=== PATIENT | female | born 1970 | race American Indian/Alaskan Native ===

== ENCOUNTER 2018-11-11 09:42 | Outpatient (CLI) | payer OTHER ==
--- NOTE | 2018-11-11 13:15 | Mammography Report ---
BILATERAL DIGITAL SCREENING MAMMOGRAM with CAD: 11/11/18 09:42:00 CLINICAL: Routine screening. COMPARISON:11/14/13 FINDINGS: Limited mobility of the left arm and subsequent suboptimal positioning of the left breast on MLO view. The breasts are heterogeneously dense, which may obscure small masses. No mass, architectural distortion or suspicious calcifications. IMPRESSION: No mammographic evidence of malignancy. BI-RADS CATEGORY: 1 - - Negative RECOMMENDATION: Routine mammographic screening in one year. COMMENT: Patient follow-up letters are generated by our [employer] application.
== END 2018-11-11 09:43 | disposition home or self-care (01) ==
LOC: MAMMO 09:42
PROVIDERS: ATTEND Obstetrics & Gynecology
DX: Z12.31 Encounter for screening mammogram for malignant neoplasm of breast (principal)
CPT/HCPCS: 77067

== ENCOUNTER 2018-12-09 10:20 | Outpatient (CLI) | payer OTHER ==
[2018-12-09 11:35] LABS: Bilirubin,Urine NEG (Negative); Blood,Urine SM (Negative); Color,Urine Yellow (Yellow); Mucus,Urine FEW /HPF; Protein,Urine <15 mg/dL mg/dL (Negative); Urobilinogen,Urine < 2.0 mg/dL (<2.0)
[2018-12-09 11:39] LABS: Chol/HDL Ratio 5.05 %
[2018-12-12 10:48] LABS: Vitamin D, 25-OH, D2 <4 ng/mL
== END 2018-12-09 10:21 | disposition home or self-care (01) ==
LOC: LAB 10:20
PROVIDERS: ATTEND Internal Medicine
DX: Z13.220 Encounter for screening for lipoid disorders (principal); E78.5 Hyperlipidemia, unspecified; R73.03 Prediabetes; N39.0 Urinary tract infection, site not specified
CPT/HCPCS: 36415; 80061; 81001; 82306; 83036; 87086

== ENCOUNTER 2019-05-01 10:13 | Outpatient (CLI) | payer OTHER ==
[2019-05-04 14:54] LABS: Vitamin D, 25-OH, D2 40 ng/mL
== END 2019-05-01 10:14 | disposition home or self-care (01) ==
LOC: LAB 10:13
PROVIDERS: ATTEND Internal Medicine
DX: E78.5 Hyperlipidemia, unspecified (principal); E55.9 Vitamin D deficiency, unspecified; R73.03 Prediabetes
CPT/HCPCS: 36415; 80061; 82306; 83036

== ENCOUNTER 2020-11-05 17:20 | Inpatient (IN) | payer OTHER ==
[2020-11-05] MEDS ORDERED: ALUM-MAG HYDROXIDE-SIMETHICONE 200-200-20MG/5ML ORAL LIQD 30 ML PO PRN (17:46)
[2020-11-05] MEDS ORDERED: ACETAMINOPHEN 325 MG TAB PO PRN (17:46)
[2020-11-05] MEDS ORDERED: MAGNESIUM HYDROXIDE (MOM) ORAL LIQD UDC PO PRN (17:46)
[2020-11-05] MEDS ORDERED: diphenhydrAMINE 25 MG CAP PO PRN (17:46)
[2020-11-05] MEDS ORDERED: ONDANSETRON 4 MG/2 ML INJ IV PRN (17:46)
[2020-11-05] MEDS ORDERED: DEXTROSE 50% IN WATER (25GM) 50 ML SYRINGE IV PRN ×2 (17:54→20:11)
[2020-11-05] MEDS ORDERED: LACTATED RINGERS 1,000 ML IV SCH (18:00)
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
[2020-11-05 18:41] LABS: Hematocrit 38.2 % (30.3-42.9); Mean Corpuscular HGB Conc 34 % (30-34); Mean Corpuscular Volume 89 fl (79-97); Platelet Count 324 K/mm3 (140-440); Red Cell Distribution Width 14.8 % (13.2-15.2)
[2020-11-05] MEDS ORDERED: MAGNESIUM SULFATE 40GM/1000ML 40 GM/1,000 ML BAG IV SCH ×2 (19:00→20:00)
[2020-11-05 19:04] LABS: Alanine Aminotransferase 20 units/L (7-56); Uric Acid 4.9 mg/dL (3.5-7.6)
[2020-11-05] MEDS ORDERED: hydrALAZINE 20 MG/1 ML INJ IV ONE (19:23)
[2020-11-05] MEDS ORDERED: MAGNESIUM SULFATE 4 GM/100 ML BAG IV ONE ×5 (19:24→19:45)
[2020-11-05] MEDS ORDERED: MAGNESIUM SULFATE 40GM/1000ML 40 GM/1,000 ML BAG IV ONE (19:42)
[2020-11-05] MEDS ORDERED: LACTATED RINGERS 1,000 ML ONE (19:43)
--- NOTE | 2020-11-05 21:15 | Event Note ---
<JESUS MEZA - Last Filed: 11/05/20 21:20> Date: 11/05/20 (Pt with shortness of breath. ) Pt with elevated blood pressures with the highest being 200's/100's. Consult[address] with Dr. Grace and the decision was made to start magnesium infusion. After the bolus of magnesium was completed patient begin to have shortness of breath. Stating that she could not breath. She was sitting up in the bed with labored breathing and appeared to be in distress. Lung sounds clear and O2 saturations were 97-98% on room air. Magnesium was stopped, stat mag level ordered along with a chest x-ray. <JAVIER GRACE - Last Filed: 11/05/20 21:36> CXR report still pending
--- NOTE | 2020-11-05 21:56 | XRay Report ---
CHEST 1 VIEW 11/05/2020 9:12 PM INDICATION / CLINICAL INFORMATION: Shortness of breath. COMPARISON: None available. FINDINGS: SUPPORT DEVICES: None. HEART / MEDIASTINUM: Enlarged cardiac silhouette. LUNGS / PLEURA: Elevation of the left hemidiaphragm with left lung base atelectasis. No pneumothorax. ADDITIONAL FINDINGS: Subluxation of the left glenohumeral joint may be secondary to positioning, if o f clinical concern dedicated radiographs the shoulder are recommended. Gas-filled and distended bowel loops over the upper abdomen. IMPRESSION: 1. Elevation of the left hemidiaphragm with left lung base atelectasis. 2. Gas-filled and distended bowel loops over the upper abdomen. Signer Name: Ramone Guadalupe MD Signed: 11/05/2020 9:52 PM Workstation Name: [id number]
[2020-11-06] MEDS ORDERED: LACTATED RINGERS 1,000 ML ONE ×3 (05:27→22:04)
--- NOTE | 2020-11-06 08:10 | Progress Note ---
<DIEGO CRONIN - Last Filed: 11/06/20 08:25> Assessment and Plan Pt up, sitting in chair while nurse changes linen. She has not complaints. denies MEJIA, visual changes or epigastric pain, b/p's trending 120-130/70-80's on Labetalol 200mg BID - Patient Problems (1) Advanced maternal age (AMA), 40 years or greater Current Visit: Yes Status: Acute (2) Elevated blood pressure complicating in third trimester, antepartum Onset Date: ~11/05/20 Current Visit: Yes Status: Acute Plan to address problem: AMFM consult 24hr urine in progress Continue to monitor for s/s pre-e (3) Gestational diabetes mellitus (GDM) Current Visit: Yes Status: Acute Qualifiers: Gestational diabetes mellitus control: diet-controlled Trimester: third trimester Qualified Code(s): O24.410 - Gestational diabetes mellitus in , diet controlled Plan to address problem: consistent carb diet SS insulin if indicated (4) with 35 completed weeks gestation Current Visit: Yes Status: Acute Subjective - Subjective Date of service: 11/06/20 Principal diagnosis: IUP @ 35+5 weeks; elevated blood pressures, 24hr urine in progress Patient reports: movement normal, no new complaints, no loss of fluid, no vaginal bleeding, no contractions, no other Objective - Vital Signs Vital Signs: Vital Signs - 12hr 11/05/20 11/05/20 11/05/20 20:07 20:08 20:13 Temperature Pulse Rate 78 85 87 Blood Pressure 134/86 O2 Sat by Pulse 98 99 Oximetry 11/05/20 11/05/20 11/05/20 20:18 20:22 20:23 Temperature Pulse Rate 83 79 85 Blood Pressure 123/79 O2 Sat by Pulse 99 97 Oximetry 11/05/20 11/05/20 11/05/20 20:27 20:28 20:31 Temperature Pulse Rate 85 87 79 Blood Pressure 121/72 O2 Sat by Pulse 96 94 Oximetry 11/05/20 11/05/20 11/05/20 20:33 20:35 20:37 Temperature Pulse Rate 80 82 83 Blood Pressure 165/90 158/79 O2 Sat by Pulse 93 94 Oximetry 11/05/20 11/05/20 11/05/20 20:38 20:43 20:48 Temperature Pulse Rate 86 75 74 Blood Pressure 155/92 115/61 111/65 O2 Sat by Pulse 94 97 99 Oximetry 11/05/20 11/05/20 11/05/20 20:52 20:53 20:58 Temperature Pulse Rate 67 70 70 Blood Pressure 114/74 141/82 O2 Sat by Pulse 98 99 Oximetry 11/05/20 11/05/20 11/05/20 21:03 21:08 21:13 Temperature Pulse Rate 72 72 75 Blood Pressure 125/78 124/84 140/83 O2 Sat by Pulse 99 98 99 Oximetry 11/05/20 11/05/20 11/05/20 21:17 21:18 21:22 Temperature Pulse Rate 76 77 76 Blood Pressure 141/84 130/83 O2 Sat by Pulse 99 Oximetry 11/05/20 11/05/20 11/05/20 21:23 21:27 21:28 Temperature Pulse Rate 78 77 79 Blood Pressure 131/87 O2 Sat by Pulse 98 99 Oximetry 11/05/20 11/05/20 11/05/20 21:32 21:33 21:38 Temperature Pulse Rate 81 79 83 Blood Pressure 132/86 137/89 O2 Sat by Pulse 99 99 Oximetry 11/05/20 11/05/20 11/05/20 21:43 21:47 21:48 Temperature Pulse Rate 83 81 85 Blood Pressure 122/78 121/78 O2 Sat by Pulse 99 99 Oximetry 11/05/20 11/05/20 11/05/20 21:52 21:53 21:57 Temperature Pulse Rate 78 81 82 Blood Pressure 122/79 115/76 O2 Sat by Pulse 99 Oximetry 11/05/20 11/05/20 11/05/20 21:58 22:02 22:03 Temperature Pulse Rate 81 80 81 Blood Pressure 128/79 O2 Sat by Pulse 99 98 Oximetry 11/05/20 11/05/20 11/05/20 22:07 22:08 22:13 Temperature Pulse Rate 80 83 80 Blood Pressure 119/74 127/75 O2 Sat by Pulse 98 99 Oximetry 11/05/20 11/05/20 11/05/20 22:17 22:18 22:23 Temperature Pulse Rate 82 80 84 Blood Pressure 128/79 123/78 O2 Sat by Pulse 99 99 Oximetry 11/05/20 11/05/20 11/05/20 22:28 22:33 22:38 Temperature Pulse Rate 80 80 80 Blood Pressure 120/73 124/81 138/65 O2 Sat by Pulse 99 99 99 Oximetry 11/05/20 11/05/20 11/05/20 22:43 22:48 22:53 Temperature Pulse Rate 79 81 82 Blood Pressure 120/78 O2 Sat by Pulse 99 98 99 Oximetry 11/05/20 11/05/20 11/05/20 22:57 22:58 23:02 Temperature Pulse Rate 80 82 76 Blood Pressure 121/78 125/81 O2 Sat by Pulse 99 Oximetry 11/05/20 11/05/20 11/05/20 23:03 23:08 23:13 Temperature Pulse Rate 83 89 84 Blood Pressure 132/86 131/88 O2 Sat by Pulse 98 99 100 Oximetry 11/05/20 11/05/20 11/05/20 23:18 23:23 23:28 Temperature Pulse Rate 87 78 80 Blood Pressure 126/84 133/85 128/88 O2 Sat by Pulse 99 98 100 Oximetry 11/05/20 11/05/20 11/05/20 23:32 23:47 23:52 Temperature Pulse Rate 81 79 82 Blood Pressure 133/92 O2 Sat by Pulse 100 98 Oximetry 11/05/20 11/05/20 11/05/20 23:53 23:57 23:59 Temperature Pulse Rate 76 78 76 Blood Pressure 122/86 139/82 O2 Sat by Pulse 99 Oximetry 11/06/20 11/06/20 11/06/20 00:00 00:02 00:03 Temperature 97.7 F Pulse Rate 76 74 Blood Pressure 133/87 O2 Sat by Pulse 98 Oximetry 11/06/20 11/06/20 11/06/20 00:07 00:08 00:12 Temperature Pulse Rate 80 81 83 Blood Pressure 126/83 O2 Sat by Pulse 97 99 Oximetry 11/06/20 11/06/20 11/06/20 00:17 00:18 00:22 Temperature Pulse Rate 81 75 78 Blood Pressure 141/83 O2 Sat by Pulse 100 99 Oximetry 11/06/20 11/06/20 11/06/20 00:27 00:32 00:37 Temperature Pulse Rate 85 82 82 Blood Pressure O2 Sat by Pulse 100 100 100 Oximetry 11/06/20 11/06/20 11/06/20 00:42 00:47 00:48 Temperature Pulse Rate 87 81 86 Blood Pressure 126/80 O2 Sat by Pulse 100 98 Oximetry 11/06/20 11/06/20 11/06/20 00:52 00:57 01:02 Temperature Pulse Rate 80 81 79 Blood Pressure O2 Sat by Pulse 99 100 99 Oximetry 11/06/20 11/06/20 11/06/20 01:07 01:12 01:17 Temperature Pulse Rate 80 93 H 84 Blood Pressure O2 Sat by Pulse 100 100 99 Oximetry 11/06/20 11/06/20 11/06/20 01:18 01:22 01:27 Temperature Pulse Rate 84 87 86 Blood Pressure 136/82 O2 Sat by Pulse 99 99 Oximetry 11/06/20 11/06/20 11/06/20 01:32 01:37 01:42 Temperature Pulse Rate 79 80 78 Blood Pressure O2 Sat by Pulse 100 99 99 Oximetry 11/06/20 11/06/20 11/06/20 01:47 02:01 02:06 Temperature Pulse Rate 79 82 79 Blood Pressure O2 Sat by Pulse 99 100 100 Oximetry 11/06/20 11/06/20 11/06/20 02:11 02:16 02:18 Temperature Pulse Rate 76 75 75 Blood Pressure 106/67 O2 Sat by Pulse 99 99 Oximetry 11/06/20 11/06/20 11/06/20 02:21 02:26 02:31 Temperature Pulse Rate 76 76 77 Blood Pressure O2 Sat by Pulse 99 100 99 Oximetry 11/06/20 11/06/20 11/06/20 02:36 02:41 02:46 Temperature Pulse Rate 75 71 74 Blood Pressure O2 Sat by Pulse 98 100 99 Oximetry 11/06/20 11/06/20 11/06/20 02:51 02:56 03:01 Temperature Pulse Rate 74 77 75 Blood Pressure O2 Sat by Pulse 98 99 99 Oximetry 11/06/20 11/06/20 11/06/20 03:06 03:11 03:16 Temperature Pulse Rate 75 79 79 Blood Pressure O2 Sat by Pulse 99 97 98 Oximetry 11/06/20 11/06/20 11/06/20 03:19 03:21 03:26 Temperature Pulse Rate 79 76 Blood Pressure O2 Sat by Pulse 64 L 97 99 Oximetry 11/06/20 11/06/20 11/06/20 03:29 03:31 03:36 Temperature Pulse Rate 77 74 78 Blood Pressure 126/65 O2 Sat by Pulse 99 98 Oximetry 11/06/20 11/06/20 11/06/20 03:41 03:46 03:48 Temperature Pulse Rate 76 78 77 Blood Pressure 104/77 O2 Sat by Pulse 99 100 Oximetry 11/06/20 11/06/20 11/06/20 03:51 03:56 04:01 Temperature Pulse Rate 85 81 82 Blood Pressure O2 Sat by Pulse 98 100 99 Oximetry 11/06/20 11/06/20 11/06/20 04:06 04:11 04:16 Temperature Pulse Rate 78 75 79 Blood Pressure O2 Sat by Pulse 100 100 99 Oximetry 11/06/20 11/06/20 11/06/20 04:18 04:21 04:26 Temperature Pulse Rate 84 83 79 Blood Pressure 127/91 O2 Sat by Pulse 98 99 Oximetry 11/06/20 11/06/20 11/06/20 04:31 04:46 04:49 Temperature Pulse Rate 79 85 74 Blood Pressure 141/75 O2 Sat by Pulse 100 100 Oximetry 11/06/20 11/06/20 11/06/20 04:51 04:56 05:01 Temperature Pulse Rate 79 77 76 Blood Pressure O2 Sat by Pulse 100 99 99 Oximetry 11/06/20 11/06/20 11/06/20 05:06 05:11 05:16 Temperature Pulse Rate 79 83 78 Blood Pressure O2 Sat by Pulse 99 99 99 Oximetry 11/06/20 11/06/20 11/06/20 05:18 05:21 05:26 Temperature Pulse Rate 82 75 74 Blood Pressure 128/82 O2 Sat by Pulse 99 99 Oximetry 11/06/20 11/06/20 11/06/20 05:31 05:36 05:41 Temperature Pulse Rate 74 84 72 Blood Pressure O2 Sat by Pulse 99 97 99 Oximetry 11/06/20 11/06/20 11/06/20 05:46 05:49 05:51 Temperature Pulse Rate 74 78 74 Blood Pressure 125/84 O2 Sat by Pulse 99 98 Oximetry 11/06/20 11/06/20 11/06/20 05:56 06:01 06:06 Temperature Pulse Rate 71 76 75 Blood Pressure O2 Sat by Pulse 99 97 98 Oximetry 11/06/20 11/06/20 11/06/20 06:11 06:16 06:18 Temperature Pulse Rate 80 79 71 Blood Pressure 142/88 O2 Sat by Pulse 97 98 Oximetry 11/06/20 11/06/20 11/06/20 06:21 06:25 06:26 Temperature Pulse Rate 73 79 71 Blood Pressure O2 Sat by Pulse 99 93 95 Oximetry 11/06/20 11/06/20 11/06/20 06:31 06:36 06:41 Temperature Pulse Rate 81 76 74 Blood Pressure O2 Sat by Pulse 99 99 98 Oximetry 11/06/20 11/06/20 11/06/20 06:46 06:48 06:51 Temperature Pulse Rate 87 77 75 Blood Pressure 138/83 O2 Sat by Pulse 98 99 Oximetry 11/06/20 11/06/20 11/06/20 06:56 07:01 07:06 Temperature Pulse Rate 75 74 76 Blood Pressure O2 Sat by Pulse 99 99 100 Oximetry 11/06/20 11/06/20 11/06/20 07:11 07:16 07:18 Temperature Pulse Rate 81 71 78 Blood Pressure 131/76 O2 Sat by Pulse 100 99 Oximetry 11/06/20 11/06/20 11/06/20 07:21 07:26 07:31 Temperature Pulse Rate 82 82 79 Blood Pressure O2 Sat by Pulse 99 100 100 Oximetry 11/06/20 11/06/20 11/06/20 07:36 07:41 07:46 Temperature Pulse Rate 82 74 73 Blood Pressure O2 Sat by Pulse 98 99 100 Oximetry 11/06/20 11/06/20 11/06/20 07:48 07:51 07:56 Temperature Pulse Rate 72 72 70 Blood Pressure 135/80 O2 Sat by Pulse 99 97 Oximetry 11/06/20 08:01 Temperature Pulse Rate 81 Blood Pressure O2 Sat by Pulse 99 Oximetry - Exam Breasts: normal Cardiovascular: Regular rate Lungs: Normal air movement Abdomen: Present: normal appearance, soft Uterus: Present: normal, fundal height above umbilicus FHR: category 1 Uterine Contraction Monitor Mode: External Uterine Contraction Pattern: Absent Uterine Tone Measurement Phase: Resting Extremities: normal Deep Tendon Reflex Grade: Normal +2 - Labs Labs: Abnormal Labs 11/05/20 11/05/20 18:20 22:49 Creatinine 0.4 L Magnesium 2.70 H AST 41 H Lactate Dehydrogenase 482 H Laboratory Results - last 24 hr 11/05/20 11/05/20 11/05/20 18:20 18:20 18:20 WBC 8.1 RBC 4.30 Hgb 13.0 Hct 38.2 MCV 89 MCH 30 MCHC 34 RDW 14.8 Plt Count 324 Creatinine 0.4 L Estimated GFR > 60 POC Glucose Uric Acid 4.9 Magnesium AST 41 H ALT 20 Lactate Dehydrogenase 482 H Syphilis IgG Antibody Blood Type A POSITIVE Antibody Screen Negative 11/05/20 11/05/20 11/05/20 18:20 18:31 22:49 WBC RBC Hgb Hct MCV MCH MCHC RDW Plt Count Creatinine Estimated GFR POC Glucose 96 Uric Acid Magnesium 2.70 H AST ALT Lactate Dehydrogenase Syphilis IgG Antibody Nonreactive Blood Type Antibody Screen <JAVIER BONNER - Last Filed: 11/06/20 10:52> Assessment and Plan Patient resting in chair, no complaints. Diagnosis and plan of care explained. Questions encouraged and answered. She voiced uderstanding and agrees plan of care - Patient Problems (1) Advanced maternal age (AMA), 40 years or greater Current Visit: Yes Status: Acute (2) Elevated blood pressure complicating in third trimester, antepartum Onset Date: ~11/05/20 Current Visit: Yes Status: Acute Objective - Vital Signs Vital Signs: Vital Signs - 12hr 11/05/20 11/05/20 11/05/20 22:53 22:57 22:58 Temperature Pulse Rate 82 80 82 Respiratory Rate Blood Pressure 120/78 121/78 O2 Sat by Pulse 99 99 Oximetry 11/05/20 11/05/20 11/05/20 23:02 23:03 23:08 Temperature Pulse Rate 76 83 89 Respiratory Rate Blood Pressure 125/81 132/86 O2 Sat by Pulse 98 99 Oximetry 11/05/20 11/05/20 11/05/20 23:13 23:18 23:23 Temperature Pulse Rate 84 87 78 Respiratory Rate Blood Pressure 131/88 126/84 133/85 O2 Sat by Pulse 100 99 98 Oximetry 11/05/20 11/05/20 11/05/20 23:28 23:32 23:47 Temperature Pulse Rate 80 81 79 Respiratory Rate Blood Pressure 128/88 133/92 O2 Sat by Pulse 100 100 Oximetry 11/05/20 11/05/20 11/05/20 23:52 23:53 23:57 Temperature Pulse Rate 82 76 78 Respiratory Rate Blood Pressure 122/86 O2 Sat by Pulse 98 99 Oximetry 11/05/20 11/06/20 11/06/20 23:59 00:00 00:02 Temperature 97.7 F Pulse Rate 76 76 Respiratory Rate Blood Pressure 139/82 O2 Sat by Pulse 98 Oximetry 11/06/20 11/06/20 11/06/20 00:03 00:07 00:08 Temperature Pulse Rate 74 80 81 Respiratory Rate Blood Pressure 133/87 126/83 O2 Sat by Pulse 97 Oximetry 11/06/20 11/06/20 11/06/20 00:12 00:17 00:18 Temperature Pulse Rate 83 81 75 Respiratory Rate Blood Pressure 141/83 O2 Sat by Pulse 99 100 Oximetry 11/06/20 11/06/20 11/06/20 00:22 00:27 00:32 Temperature Pulse Rate 78 85 82 Respiratory Rate Blood Pressure O2 Sat by Pulse 99 100 100 Oximetry 11/06/20 11/06/20 11/06/20 00:37 00:42 00:47 Temperature Pulse Rate 82 87 81 Respiratory Rate Blood Pressure O2 Sat by Pulse 100 100 98 Oximetry 11/06/20 11/06/20 11/06/20 00:48 00:52 00:57 Temperature Pulse Rate 86 80 81 Respiratory Rate Blood Pressure 126/80 O2 Sat by Pulse 99 100 Oximetry 11/06/20 11/06/20 11/06/20 01:02 01:07 01:12 Temperature Pulse Rate 79 80 93 H Respiratory Rate Blood Pressure O2 Sat by Pulse 99 100 100 Oximetry 11/06/20 11/06/20 11/06/20 01:17 01:18 01:22 Temperature Pulse Rate 84 84 87 Respiratory Rate Blood Pressure 136/82 O2 Sat by Pulse 99 99 Oximetry 11/06/20 11/06/20 11/06/20 01:27 01:32 01:37 Temperature Pulse Rate 86 79 80 Respiratory Rate Blood Pressure O2 Sat by Pulse 99 100 99 Oximetry 11/06/20 11/06/20 11/06/20 01:42 01:47 02:01 Temperature Pulse Rate 78 79 82 Respiratory Rate Blood Pressure O2 Sat by Pulse 99 99 100 Oximetry 11/06/20 11/06/20 11/06/20 02:06 02:11 02:16 Temperature Pulse Rate 79 76 75 Respiratory Rate Blood Pressure O2 Sat by Pulse 100 99 99 Oximetry 11/06/20 11/06/20 11/06/20 02:18 02:21 02:26 Temperature Pulse Rate 75 76 76 Respiratory Rate Blood Pressure 106/67 O2 Sat by Pulse 99 100 Oximetry 11/06/20 11/06/20 11/06/20 02:31 02:36 02:41 Temperature Pulse Rate 77 75 71 Respiratory Rate Blood Pressure O2 Sat by Pulse 99 98 100 Oximetry 11/06/20 11/06/20 11/06/20 02:46 02:51 02:56 Temperature Pulse Rate 74 74 77 Respiratory Rate Blood Pressure O2 Sat by Pulse 99 98 99 Oximetry 11/06/20 11/06/20 11/06/20 03:01 03:06 03:11 Temperature Pulse Rate 75 75 79 Respiratory Rate Blood Pressure O2 Sat by Pulse 99 99 97 Oximetry 11/06/20 11/06/20 11/06/20 03:16 03:19 03:21 Temperature Pulse Rate 79 79 Respiratory Rate Blood Pressure O2 Sat by Pulse 98 64 L 97 Oximetry 11/06/20 11/06/20 11/06/20 03:26 03:29 03:31 Temperature Pulse Rate 76 77 74 Respiratory Rate Blood Pressure 126/65 O2 Sat by Pulse 99 99 Oximetry 11/06/20 11/06/20 11/06/20 03:36 03:41 03:46 Temperature Pulse Rate 78 76 78 Respiratory Rate Blood Pressure O2 Sat by Pulse 98 99 100 Oximetry 11/06/20 11/06/20 11/06/20 03:48 03:51 03:56 Temperature Pulse Rate 77 85 81 Respiratory Rate Blood Pressure 104/77 O2 Sat by Pulse 98 100 Oximetry 11/06/20 11/06/20 11/06/20 04:01 04:06 04:11 Temperature Pulse Rate 82 78 75 Respiratory Rate Blood Pressure O2 Sat by Pulse 99 100 100 Oximetry 11/06/20 11/06/20 11/06/20 04:16 04:18 04:21 Temperature Pulse Rate 79 84 83 Respiratory Rate Blood Pressure 127/91 O2 Sat by Pulse 99 98 Oximetry 11/06/20 11/06/20 11/06/20 04:26 04:31 04:46 Temperature Pulse Rate 79 79 85 Respiratory Rate Blood Pressure O2 Sat by Pulse 99 100 100 Oximetry 11/06/20 11/06/20 11/06/20 04:49 04:51 04:56 Temperature Pulse Rate 74 79 77 Respiratory Rate Blood Pressure 141/75 O2 Sat by Pulse 100 99 Oximetry 11/06/20 11/06/20 11/06/20 05:01 05:06 05:11 Temperature Pulse Rate 76 79 83 Respiratory Rate Blood Pressure O2 Sat by Pulse 99 99 99 Oximetry 11/06/20 11/06/20 11/06/20 05:16 05:18 05:21 Temperature Pulse Rate 78 82 75 Respiratory Rate Blood Pressure 128/82 O2 Sat by Pulse 99 99 Oximetry 11/06/20 11/06/20 11/06/20 05:26 05:31 05:36 Temperature Pulse Rate 74 74 84 Respiratory Rate Blood Pressure O2 Sat by Pulse 99 99 97 Oximetry 11/06/20 11/06/20 11/06/20 05:41 05:46 05:49 Temperature Pulse Rate 72 74 78 Respiratory Rate Blood Pressure 125/84 O2 Sat by Pulse 99 99 Oximetry 11/06/20 11/06/20 11/06/20 05:51 05:56 06:01 Temperature Pulse Rate 74 71 76 Respiratory Rate Blood Pressure O2 Sat by Pulse 98 99 97 Oximetry 11/06/20 11/06/20 11/06/20 06:06 06:11 06:16 Temperature Pulse Rate 75 80 79 Respiratory Rate Blood Pressure O2 Sat by Pulse 98 97 98 Oximetry 11/06/20 11/06/20 11/06/20 06:18 06:21 06:25 Temperature Pulse Rate 71 73 79 Respiratory Rate Blood Pressure 142/88 O2 Sat by Pulse 99 93 Oximetry 11/06/20 11/06/20 11/06/20 06:26 06:31 06:36 Temperature Pulse Rate 71 81 76 Respiratory Rate Blood Pressure O2 Sat by Pulse 95 99 99 Oximetry 11/06/20 11/06/20 11/06/20 06:41 06:46 06:48 Temperature Pulse Rate 74 87 77 Respiratory Rate Blood Pressure 138/83 O2 Sat by Pulse 98 98 Oximetry 11/06/20 11/06/20 11/06/20 06:51 06:56 07:01 Temperature Pulse Rate 75 75 74 Respiratory Rate Blood Pressure O2 Sat by Pulse 99 99 99 Oximetry 11/06/20 11/06/20 11/06/20 07:06 07:11 07:16 Temperature Pulse Rate 76 81 71 Respiratory Rate Blood Pressure O2 Sat by Pulse 100 100 99 Oximetry 11/06/20 11/06/20 11/06/20 07:18 07:21 07:26 Temperature Pulse Rate 78 82 82 Respiratory Rate Blood Pressure 131/76 O2 Sat by Pulse 99 100 Oximetry 11/06/20 11/06/20 11/06/20 07:31 07:36 07:41 Temperature Pulse Rate 79 82 74 Respiratory Rate Blood Pressure O2 Sat by Pulse 100 98 99 Oximetry 11/06/20 11/06/20 11/06/20 07:46 07:48 07:51 Temperature Pulse Rate 73 72 72 Respiratory Rate Blood Pressure 135/80 O2 Sat by Pulse 100 99 Oximetry 11/06/20 11/06/20 11/06/20 07:56 08:00 08:01 Temperature 98.2 F Pulse Rate 70 81 Respiratory 26 H Rate Blood Pressure O2 Sat by Pulse 97 99 Oximetry 11/06/20 11/06/20 11/06/20 08:06 08:11 08:13 Temperature Pulse Rate 80 69 80 Respiratory Rate Blood Pressure 126/85 O2 Sat by Pulse 99 100 Oximetry 11/06/20 11/06/20 11/06/20 08:16 08:18 08:21 Temperature Pulse Rate 71 82 82 Respiratory Rate Blood Pressure 135/84 O2 Sat by Pulse 99 100 Oximetry 11/06/20 11/06/20 11/06/20 08:26 08:31 08:35 Temperature Pulse Rate 77 93 H 85 Respiratory Rate Blood Pressure O2 Sat by Pulse 100 99 93 Oximetry 11/06/20 11/06/20 11/06/20 08:36 08:41 08:46 Temperature Pulse Rate 82 88 82 Respiratory Rate Blood Pressure O2 Sat by Pulse 99 100 99 Oximetry 11/06/20 11/06/20 11/06/20 08:48 08:51 08:56 Temperature Pulse Rate 78 87 84 Respiratory Rate Blood Pressure 124/76 O2 Sat by Pulse 99 99 Oximetry 11/06/20 11/06/20 11/06/20 09:01 09:06 09:11 Temperature Pulse Rate 88 88 84 Respiratory Rate Blood Pressure O2 Sat by Pulse 99 99 98 Oximetry 11/06/20 11/06/20 11/06/20 09:16 09:19 09:21 Temperature Pulse Rate 82 85 82 Respiratory Rate Blood Pressure 128/72 O2 Sat by Pulse 99 99 Oximetry 11/06/20 11/06/20 11/06/20 09:26 09:31 09:34 Temperature Pulse Rate 81 84 77 Respiratory Rate Blood Pressure 127/81 O2 Sat by Pulse 100 100 Oximetry 11/06/20 11/06/20 11/06/20 09:36 09:41 09:46 Temperature Pulse Rate 87 82 84 Respiratory Rate Blood Pressure O2 Sat by Pulse 98 99 99 Oximetry 11/06/20 11/06/20 11/06/20 09:48 09:51 09:56 Temperature Pulse Rate 78 78 80 Respiratory Rate Blood Pressure 127/78 O2 Sat by Pulse 99 99 Oximetry 11/06/20 11/06/20 11/06/20 10:01 10:06 10:11 Temperature Pulse Rate 78 77 83 Respiratory Rate Blood Pressure O2 Sat by Pulse 98 99 99 Oximetry 11/06/20 11/06/20 11/06/20 10:16 10:18 10:21 Temperature Pulse Rate 77 82 82 Respiratory Rate Blood Pressure 138/76 O2 Sat by Pulse 99 98 Oximetry 11/06/20 11/06/20 11/06/20 10:26 10:31 10:36 Temperature Pulse Rate 78 86 87 Respiratory Rate Blood Pressure O2 Sat by Pulse 98 99 100 Oximetry 11/06/20 11/06/20 11/06/20 10:41 10:46 10:48 Temperature Pulse Rate 86 89 84 Respiratory Rate Blood Pressure 126/84 O2 Sat by Pulse 100 99 Oximetry - Labs Labs: Abnormal Labs 11/05/20 11/05/20 18:20 22:49 Creatinine 0.4 L Magnesium 2.70 H AST 41 H Lactate Dehydrogenase 482 H Laboratory Results - last 24 hr 11/05/20 11/05/20 11/05/20 18:20 18:20 18:20 WBC 8.1 RBC 4.30 Hgb 13.0 Hct 38.2 MCV 89 MCH 30 MCHC 34 RDW 14.8 Plt Count 324 Creatinine 0.4 L Estimated GFR > 60 POC Glucose Uric Acid 4.9 Magnesium AST 41 H ALT 20 Lactate Dehydrogenase 482 H Syphilis IgG Antibody Blood Type A POSITIVE Antibody Screen Negative 11/05/20 11/05/20 11/05/20 18:20 18:31 22:49 WBC RBC Hgb Hct MCV MCH MCHC RDW Plt Count Creatinine Estimated GFR POC Glucose 96 Uric Acid Magnesium 2.70 H AST ALT Lactate Dehydrogenase Syphilis IgG Antibody Nonreactive Blood Type Antibody Screen
[2020-11-06] MEDS: PRENATAL VIT27-FE FUMARATE-FOLIC ACID VIT TAB PO SCH (09:33)
[2020-11-06 11:34] LABS: Uric Acid 5.1 mg/dL (3.5-7.6)
[2020-11-06] MEDS: INSULIN REGULAR, HUMAN 100 UNITS/1 ML SUB-Q SCH (11:44)
[2020-11-07] MEDS ORDERED: LACTATED RINGERS 1,000 ML ONE (06:40)
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
--- NOTE | 2020-11-07 08:38 | Progress Note ---
Assessment and Plan - Patient Problems (1) Elevated blood pressure complicating in third trimester, antepartum Onset Date: ~11/05/20 Current Visit: Yes Status: Acute Plan to address problem: Labetalol per order continue monitoring for SSx of worsening Preeclampsia Plan to revisit POC once 24hr urine results received (2) Gestational diabetes mellitus (GDM) Current Visit: Yes Status: Acute Qualifiers: Gestational diabetes mellitus control: diet-controlled Trimester: third trimester Qualified Code(s): O24.410 - Gestational diabetes mellitus in , diet controlled (3) with 35 completed weeks gestation Current Visit: Yes Status: Acute Subjective - Subjective Date of service: 11/07/20 Principal diagnosis: IUP @ 35+6 weeks; elevated blood pressures, 24hr urine in progress Interval history: Pt sitting up in bed eating breakfast without complaint. Denies MEJIA, vision changes, chest pain, and RUQ pain. Reports desire for a shower and discharge home today. Patient reports: movement normal, no new complaints, no loss of fluid, no vaginal bleeding, no contractions, no other Objective - Vital Signs Vital Signs: Vital Signs - 12hr 11/06/20 11/06/20 11/06/20 20:39 20:44 20:49 Pulse Rate 82 83 80 Blood Pressure 126/76 O2 Sat by Pulse 100 100 Oximetry 11/06/20 11/06/20 11/06/20 20:50 20:55 21:00 Pulse Rate 82 83 86 Blood Pressure O2 Sat by Pulse 100 99 100 Oximetry 11/06/20 11/06/20 11/06/20 21:05 21:10 21:15 Pulse Rate 84 78 78 Blood Pressure O2 Sat by Pulse 100 100 100 Oximetry 11/06/20 11/06/20 11/06/20 21:18 21:20 21:25 Pulse Rate 81 82 81 Blood Pressure 128/80 O2 Sat by Pulse 100 100 Oximetry 11/06/20 11/06/20 11/06/20 21:30 21:35 21:40 Pulse Rate 78 76 79 Blood Pressure O2 Sat by Pulse 100 100 98 Oximetry 11/06/20 11/06/20 11/06/20 21:45 21:48 21:50 Pulse Rate 83 81 83 Blood Pressure 131/81 O2 Sat by Pulse 99 100 Oximetry 11/06/20 11/06/20 11/06/20 21:55 22:00 22:05 Pulse Rate 79 87 84 Blood Pressure O2 Sat by Pulse 100 100 100 Oximetry 11/06/20 11/06/20 11/06/20 22:10 22:13 22:14 Pulse Rate 78 77 81 Blood Pressure 139/76 139/76 O2 Sat by Pulse 100 Oximetry 11/06/20 11/06/20 11/06/20 22:15 22:18 22:20 Pulse Rate 78 74 76 Blood Pressure 138/85 O2 Sat by Pulse 100 100 Oximetry 11/06/20 11/06/20 11/06/20 22:41 22:46 22:49 Pulse Rate 75 80 75 Blood Pressure 132/80 O2 Sat by Pulse 100 100 Oximetry 11/06/20 11/06/20 11/06/20 22:51 22:56 23:01 Pulse Rate 78 77 78 Blood Pressure O2 Sat by Pulse 100 100 100 Oximetry 11/06/20 11/06/20 11/06/20 23:06 23:11 23:16 Pulse Rate 76 83 86 Blood Pressure O2 Sat by Pulse 100 99 100 Oximetry 11/06/20 11/06/20 11/06/20 23:20 23:21 23:26 Pulse Rate 82 82 83 Blood Pressure 157/72 O2 Sat by Pulse 100 100 Oximetry 11/06/20 11/06/20 11/06/20 23:31 23:41 23:46 Pulse Rate 84 86 80 Blood Pressure O2 Sat by Pulse 99 98 99 Oximetry 11/06/20 11/06/20 11/06/20 23:48 23:51 23:56 Pulse Rate 77 79 79 Blood Pressure 112/75 O2 Sat by Pulse 98 97 Oximetry 11/07/20 11/07/20 11/07/20 00:01 00:06 00:09 Pulse Rate 80 83 87 Blood Pressure O2 Sat by Pulse 98 98 93 Oximetry 11/07/20 11/07/20 11/07/20 00:11 00:16 00:17 Pulse Rate 90 80 81 Blood Pressure O2 Sat by Pulse 97 96 94 Oximetry 11/07/20 11/07/20 11/07/20 00:18 00:35 00:40 Pulse Rate 82 78 78 Blood Pressure 131/84 O2 Sat by Pulse 99 98 Oximetry 11/07/20 11/07/20 11/07/20 00:45 00:48 00:50 Pulse Rate 76 81 83 Blood Pressure 111/70 O2 Sat by Pulse 99 97 Oximetry 11/07/20 11/07/20 11/07/20 00:55 01:00 01:05 Pulse Rate 80 84 83 Blood Pressure O2 Sat by Pulse 98 98 99 Oximetry 11/07/20 11/07/20 11/07/20 01:10 01:15 01:18 Pulse Rate 87 84 72 Blood Pressure 143/83 O2 Sat by Pulse 97 98 Oximetry 11/07/20 11/07/20 11/07/20 01:20 01:21 01:25 Pulse Rate 78 79 69 Blood Pressure O2 Sat by Pulse 97 93 100 Oximetry 11/07/20 11/07/20 11/07/20 01:30 01:35 01:40 Pulse Rate 73 75 75 Blood Pressure O2 Sat by Pulse 99 98 99 Oximetry 11/07/20 11/07/20 11/07/20 01:45 01:49 01:50 Pulse Rate 73 70 76 Blood Pressure 120/71 O2 Sat by Pulse 99 98 Oximetry 11/07/20 11/07/20 11/07/20 01:55 01:56 02:00 Pulse Rate 74 74 78 Blood Pressure O2 Sat by Pulse 96 93 97 Oximetry 11/07/20 11/07/20 11/07/20 02:05 02:10 02:15 Pulse Rate 79 79 71 Blood Pressure O2 Sat by Pulse 99 98 100 Oximetry 11/07/20 11/07/20 11/07/20 02:19 02:20 02:25 Pulse Rate 75 73 72 Blood Pressure 154/85 O2 Sat by Pulse 94 99 98 Oximetry 11/07/20 11/07/20 11/07/20 02:30 02:35 02:40 Pulse Rate 75 81 74 Blood Pressure O2 Sat by Pulse 98 98 100 Oximetry 11/07/20 11/07/20 11/07/20 02:45 02:49 02:50 Pulse Rate 78 74 70 Blood Pressure 141/86 O2 Sat by Pulse 99 100 Oximetry 11/07/20 11/07/20 11/07/20 02:55 03:00 03:03 Pulse Rate 72 69 88 Blood Pressure O2 Sat by Pulse 99 98 94 Oximetry 11/07/20 11/07/20 11/07/20 03:05 03:10 03:15 Pulse Rate 82 71 76 Blood Pressure O2 Sat by Pulse 98 99 98 Oximetry 11/07/20 11/07/20 11/07/20 03:20 03:21 03:25 Pulse Rate 78 75 75 Blood Pressure 145/93 O2 Sat by Pulse 99 97 Oximetry 11/07/20 11/07/20 11/07/20 03:30 03:35 03:40 Pulse Rate 75 75 75 Blood Pressure O2 Sat by Pulse 97 97 98 Oximetry 11/07/20 11/07/20 11/07/20 03:42 03:45 03:48 Pulse Rate 80 75 68 Blood Pressure 131/75 O2 Sat by Pulse 92 98 Oximetry 11/07/20 11/07/20 11/07/20 03:50 03:55 04:00 Pulse Rate 72 69 66 Blood Pressure O2 Sat by Pulse 98 99 99 Oximetry 11/07/20 11/07/20 11/07/20 04:29 04:33 04:34 Pulse Rate 72 78 75 Blood Pressure O2 Sat by Pulse 100 93 100 Oximetry 11/07/20 11/07/20 11/07/20 04:39 04:40 04:44 Pulse Rate 74 81 74 Blood Pressure O2 Sat by Pulse 100 92 99 Oximetry 11/07/20 11/07/20 11/07/20 04:49 04:54 04:59 Pulse Rate 71 71 69 Blood Pressure 123/68 O2 Sat by Pulse 99 99 98 Oximetry 11/07/20 11/07/20 11/07/20 05:04 05:09 05:13 Pulse Rate 72 77 68 Blood Pressure O2 Sat by Pulse 98 98 93 Oximetry 11/07/20 11/07/20 11/07/20 05:16 05:19 05:21 Pulse Rate 60 72 69 Blood Pressure 126/75 O2 Sat by Pulse 94 100 Oximetry 11/07/20 11/07/20 11/07/20 05:26 05:31 05:36 Pulse Rate 82 78 73 Blood Pressure O2 Sat by Pulse 97 98 97 Oximetry 11/07/20 11/07/20 11/07/20 05:40 05:41 05:46 Pulse Rate 83 88 73 Blood Pressure O2 Sat by Pulse 91 98 96 Oximetry 11/07/20 11/07/20 11/07/20 05:51 05:56 06:01 Pulse Rate 73 77 70 Blood Pressure O2 Sat by Pulse 98 100 100 Oximetry 11/07/20 11/07/20 11/07/20 06:06 06:10 06:11 Pulse Rate 69 78 78 Blood Pressure O2 Sat by Pulse 100 84 99 Oximetry 11/07/20 11/07/20 11/07/20 06:16 06:19 06:21 Pulse Rate 75 75 72 Blood Pressure 148/87 O2 Sat by Pulse 99 97 Oximetry 11/07/20 11/07/20 11/07/20 06:26 06:31 06:36 Pulse Rate 78 81 76 Blood Pressure O2 Sat by Pulse 99 97 97 Oximetry 11/07/20 11/07/20 11/07/20 06:41 06:46 06:49 Pulse Rate 74 70 75 Blood Pressure 134/88 O2 Sat by Pulse 98 100 Oximetry 11/07/20 11/07/20 11/07/20 06:51 06:56 07:06 Pulse Rate 79 71 91 H Blood Pressure O2 Sat by Pulse 97 100 94 Oximetry 11/07/20 11/07/20 11/07/20 07:07 07:11 07:16 Pulse Rate 92 H 72 82 Blood Pressure O2 Sat by Pulse 94 98 100 Oximetry 11/07/20 11/07/20 11/07/20 07:18 07:21 07:26 Pulse Rate 70 76 72 Blood Pressure 133/86 O2 Sat by Pulse 98 98 Oximetry 11/07/20 11/07/20 11/07/20 07:31 07:36 07:41 Pulse Rate 72 72 71 Blood Pressure O2 Sat by Pulse 100 99 99 Oximetry 11/07/20 11/07/20 11/07/20 07:46 07:49 07:51 Pulse Rate 76 83 79 Blood Pressure 143/91 O2 Sat by Pulse 98 100 Oximetry 11/07/20 11/07/20 11/07/20 07:56 08:01 08:06 Pulse Rate 85 81 92 H Blood Pressure O2 Sat by Pulse 97 96 96 Oximetry 11/07/20 11/07/20 11/07/20 08:11 08:12 08:15 Pulse Rate 88 93 H 80 Blood Pressure 129/77 O2 Sat by Pulse 97 85 Oximetry 11/07/20 11/07/20 11/07/20 08:16 08:21 08:26 Pulse Rate 79 77 81 Blood Pressure O2 Sat by Pulse 98 98 98 Oximetry 11/07/20 08:31 Pulse Rate 78 Blood Pressure O2 Sat by Pulse 97 Oximetry - Exam Cardiovascular: Regular rate Lungs: Clear to auscultation (in upper lobes; diminished breath sounds on left lower lobe and pt reports chronic issue) Abdomen: Present: soft Uterus: Present: normal FHR: auscultation normal, category 1 Uterine Contraction Monitor Mode: External Uterine Contraction Pattern: Absent Uterine Tone Measurement Phase: Resting Extremities: edema (1+ pitting pretibial edema BLE) - Labs Labs: Abnormal Labs 11/05/20 11/05/20 11/06/20 18:20 22:49 10:29 Creatinine 0.4 L POC Glucose Magnesium 2.70 H AST 41 H Lactate Dehydrogenase 482 H 194 H 11/06/20 11/07/20 11:39 00:37 Creatinine POC Glucose 106 H 126 H Magnesium AST Lactate Dehydrogenase Laboratory Results - last 24 hr 11/06/20 11/06/20 11/06/20 10:29 11:39 17:40 POC Glucose 106 H 88 Uric Acid 5.1 AST 21 ALT 15 Lactate Dehydrogenase 194 H 11/07/20 00:37 POC Glucose 126 H Uric Acid AST ALT Lactate Dehydrogenase
[2020-11-07] MEDS: PRENATAL VIT27-FE FUMARATE-FOLIC ACID VIT TAB PO SCH (10:20)
[2020-11-07] MEDS: INSULIN REGULAR, HUMAN 100 UNITS/1 ML SUB-Q SCH ×4 (12:38→22:30)
--- NOTE | 2020-11-07 21:58 | Event Note ---
Date: 11/07/20 POC discussed with pt, FOB, and pt's sister via phone @[facility]. Denies MEJIA, RUQ pain, chest pain, and vision changes. SVE closed/thick/high/firm; VTX presentation palpated by Hermes's maneuver. Plan to start IOL with cervidil now per DR. Hernandez consultation. All questions addressed. Anticipate .
[2020-11-07] MEDS ORDERED: DINOPROSTONE 10 MG VAG SUPP VG ONE (23:45)
[2020-11-08] MEDS: INSULIN REGULAR, HUMAN 100 UNITS/1 ML SUB-Q SCH ×3 (08:22→17:42)
--- NOTE | 2020-11-08 08:35 | Progress Note ---
<DIEGO CRONIN - Last Filed: 11/08/20 12:17> Assessment and Plan Will continue cervidil for full 12hrs. RN to remove. If FHT cat 1, patient may shower and have lunch before starting pitocin. - Patient Problems (1) Advanced maternal age (AMA), 40 years or greater Current Visit: Yes Status: Acute (2) Gestational diabetes mellitus (GDM) Current Visit: Yes Status: Acute Qualifiers: Gestational diabetes mellitus control: diet-controlled Trimester: third trimester Qualified Code(s): O24.410 - Gestational diabetes mellitus in , diet controlled Plan to address problem: consistent carb diet SS insulin if indicated (3) Gestational HTN Current Visit: Yes Status: Acute Qualifiers: Trimester: third trimester Qualified Code(s): O13.3 - Gestational [-induced] hypertension without significant proteinuria, third trimester Plan to address problem: IOL in progress Cont Labetalol Monitor for s/s pre-e (4) 36 weeks gestation of Current Visit: Yes Status: Acute Plan to address problem: steroids ordered per Dr. Hancock's note 11/08/19. NICU Consult Subjective - Subjective Date of service: 11/08/20 Principal diagnosis: IUP @ 36+0 weeks; GHTN, IOL Patient reports: movement normal, no new complaints, no loss of fluid, no vaginal bleeding, no contractions, no other Objective - Vital Signs Vital Signs: Vital Signs - 12hr 11/07/20 11/07/20 11/07/20 20:34 20:39 20:44 Temperature Pulse Rate 81 74 91 H Respiratory Rate Blood Pressure Blood Pressure [Left] O2 Sat by Pulse 99 100 99 Oximetry 11/07/20 11/07/20 11/07/20 20:49 20:54 20:59 Temperature Pulse Rate 82 89 89 Respiratory Rate Blood Pressure Blood Pressure [Left] O2 Sat by Pulse 100 100 100 Oximetry 11/07/20 11/07/20 11/07/20 21:04 21:09 21:14 Temperature Pulse Rate 81 89 85 Respiratory Rate Blood Pressure Blood Pressure [Left] O2 Sat by Pulse 99 99 99 Oximetry 11/07/20 11/07/20 11/07/20 21:16 21:19 21:24 Temperature Pulse Rate 87 86 89 Respiratory Rate Blood Pressure 142/81 Blood Pressure [Left] O2 Sat by Pulse 100 100 Oximetry 11/07/20 11/07/20 11/07/20 21:29 21:34 21:39 Temperature Pulse Rate 87 89 99 H Respiratory Rate Blood Pressure Blood Pressure [Left] O2 Sat by Pulse 98 99 98 Oximetry 11/07/20 11/07/20 11/07/20 21:44 21:47 21:49 Temperature Pulse Rate 97 H 90 89 Respiratory Rate Blood Pressure 173/83 178/100 Blood Pressure [Left] O2 Sat by Pulse 100 100 Oximetry 11/07/20 11/07/20 11/07/20 21:50 21:54 21:59 Temperature Pulse Rate 88 85 85 Respiratory Rate Blood Pressure 138/77 Blood Pressure [Left] O2 Sat by Pulse 100 100 Oximetry 11/07/20 11/07/20 11/07/20 22:04 22:11 22:13 Temperature Pulse Rate 86 80 84 Respiratory Rate Blood Pressure 167/86 Blood Pressure [Left] O2 Sat by Pulse 99 97 Oximetry 11/07/20 11/07/20 11/07/20 22:14 22:16 22:38 Temperature Pulse Rate 82 84 91 H Respiratory Rate Blood Pressure 167/86 Blood Pressure [Left] O2 Sat by Pulse 98 96 Oximetry 11/07/20 11/07/20 11/07/20 22:43 22:47 22:48 Temperature Pulse Rate 78 76 77 Respiratory Rate Blood Pressure 134/74 Blood Pressure [Left] O2 Sat by Pulse 98 98 Oximetry 11/07/20 11/07/20 11/07/20 22:53 22:58 23:01 Temperature Pulse Rate 75 84 101 H Respiratory Rate Blood Pressure Blood Pressure [Left] O2 Sat by Pulse 98 99 94 Oximetry 11/07/20 11/07/20 11/07/20 23:03 23:08 23:13 Temperature Pulse Rate 81 77 81 Respiratory Rate Blood Pressure Blood Pressure [Left] O2 Sat by Pulse 96 98 98 Oximetry 11/07/20 11/07/20 11/07/20 23:16 23:18 23:23 Temperature Pulse Rate 75 78 77 Respiratory Rate Blood Pressure 135/76 Blood Pressure [Left] O2 Sat by Pulse 98 97 Oximetry 11/07/20 11/07/20 11/07/20 23:28 23:33 23:38 Temperature Pulse Rate 79 77 77 Respiratory Rate Blood Pressure Blood Pressure [Left] O2 Sat by Pulse 99 97 97 Oximetry 11/07/20 11/07/20 11/07/20 23:43 23:46 23:48 Temperature Pulse Rate 79 78 80 Respiratory Rate Blood Pressure 115/62 Blood Pressure [Left] O2 Sat by Pulse 96 94 98 Oximetry 11/07/20 11/07/20 11/08/20 23:53 23:58 00:03 Temperature Pulse Rate 79 84 78 Respiratory Rate Blood Pressure Blood Pressure [Left] O2 Sat by Pulse 97 97 99 Oximetry 11/08/20 11/08/20 11/08/20 00:08 00:09 00:13 Temperature Pulse Rate 84 90 78 Respiratory Rate Blood Pressure Blood Pressure [Left] O2 Sat by Pulse 97 93 99 Oximetry 11/08/20 11/08/20 11/08/20 00:16 00:18 00:20 Temperature 98.3 F Pulse Rate 77 79 Respiratory Rate Blood Pressure 124/70 Blood Pressure [Left] O2 Sat by Pulse 100 Oximetry 11/08/20 11/08/20 11/08/20 00:23 00:28 00:33 Temperature Pulse Rate 87 82 79 Respiratory Rate Blood Pressure Blood Pressure [Left] O2 Sat by Pulse 99 97 98 Oximetry 11/08/20 11/08/20 11/08/20 00:38 00:43 00:46 Temperature Pulse Rate 78 84 78 Respiratory Rate Blood Pressure 129/87 Blood Pressure [Left] O2 Sat by Pulse 98 98 Oximetry 11/08/20 11/08/20 11/08/20 00:48 00:53 00:58 Temperature Pulse Rate 72 76 76 Respiratory Rate Blood Pressure Blood Pressure [Left] O2 Sat by Pulse 99 98 98 Oximetry 11/08/20 11/08/20 11/08/20 01:03 01:08 01:13 Temperature Pulse Rate 74 73 78 Respiratory Rate Blood Pressure Blood Pressure [Left] O2 Sat by Pulse 98 99 99 Oximetry 11/08/20 11/08/20 11/08/20 01:17 01:18 01:23 Temperature Pulse Rate 82 83 71 Respiratory Rate Blood Pressure 118/68 Blood Pressure [Left] O2 Sat by Pulse 99 99 Oximetry 11/08/20 11/08/20 11/08/20 01:28 01:33 01:38 Temperature Pulse Rate 80 83 78 Respiratory Rate Blood Pressure Blood Pressure [Left] O2 Sat by Pulse 98 99 100 Oximetry 11/08/20 11/08/2011/08/21 01:43 01:46 01:48 Temperature Pulse Rate 80 81 74 Respiratory Rate Blood Pressure 131/71 Blood Pressure [Left] O2 Sat by Pulse 99 100 Oximetry 11/08/20 11/08/20 11/08/20 01:53 01:58 02:03 Temperature Pulse Rate 79 79 77 Respiratory Rate Blood Pressure Blood Pressure [Left] O2 Sat by Pulse 97 98 98 Oximetry 11/08/20 11/08/20 11/08/20 02:08 02:13 02:16 Temperature Pulse Rate 79 78 82 Respiratory Rate Blood Pressure 140/70 Blood Pressure [Left] O2 Sat by Pulse 99 100 Oximetry 11/08/20 11/08/20 11/08/20 02:18 02:23 02:28 Temperature Pulse Rate 76 81 79 Respiratory Rate Blood Pressure Blood Pressure [Left] O2 Sat by Pulse 98 96 97 Oximetry 11/08/20 11/08/20 11/08/20 02:33 02:38 02:43 Temperature Pulse Rate 77 73 78 Respiratory Rate Blood Pressure Blood Pressure [Left] O2 Sat by Pulse 97 97 97 Oximetry 11/08/20 11/08/20 11/08/20 02:48 02:53 02:58 Temperature Pulse Rate 72 71 75 Respiratory Rate Blood Pressure Blood Pressure [Left] O2 Sat by Pulse 97 97 97 Oximetry 11/08/20 11/08/20 11/08/20 03:03 03:08 03:13 Temperature Pulse Rate 63 73 76 Respiratory Rate Blood Pressure Blood Pressure [Left] O2 Sat by Pulse 100 98 97 Oximetry 11/08/20 11/08/20 11/08/20 03:16 03:18 03:23 Temperature Pulse Rate 73 74 76 Respiratory Rate Blood Pressure 138/83 Blood Pressure [Left] O2 Sat by Pulse 94 98 100 Oximetry 11/08/20 11/08/20 11/08/20 03:28 03:33 03:38 Temperature Pulse Rate 77 75 75 Respiratory Rate Blood Pressure Blood Pressure [Left] O2 Sat by Pulse 100 98 98 Oximetry 11/08/20 11/08/20 11/08/20 03:43 03:48 03:53 Temperature Pulse Rate 71 69 72 Respiratory Rate Blood Pressure Blood Pressure [Left] O2 Sat by Pulse 98 99 98 Oximetry 11/08/20 11/08/20 11/08/20 03:58 04:03 04:08 Temperature Pulse Rate 74 70 70 Respiratory Rate Blood Pressure Blood Pressure [Left] O2 Sat by Pulse 99 99 100 Oximetry 11/08/20 11/08/20 11/08/20 04:13 04:17 04:18 Temperature Pulse Rate 73 83 83 Respiratory Rate Blood Pressure 124/76 Blood Pressure [Left] O2 Sat by Pulse 99 99 Oximetry 11/08/20 11/08/20 11/08/20 04:20 04:23 04:28 Temperature 98.7 F Pulse Rate 78 80 Respiratory Rate Blood Pressure Blood Pressure [Left] O2 Sat by Pulse 99 97 Oximetry 11/08/20 11/08/20 11/08/20 04:33 04:38 04:43 Temperature Pulse Rate 86 79 70 Respiratory Rate Blood Pressure Blood Pressure [Left] O2 Sat by Pulse 99 99 99 Oximetry 11/08/20 11/08/20 11/08/20 04:47 04:48 04:53 Temperature Pulse Rate 72 76 Respiratory Rate Blood Pressure 130/79 Blood Pressure [Left] O2 Sat by Pulse 99 98 Oximetry 11/08/20 11/08/20 11/08/20 04:58 05:03 05:08 Temperature Pulse Rate 93 H 75 74 Respiratory Rate Blood Pressure Blood Pressure [Left] O2 Sat by Pulse 98 98 98 Oximetry 11/08/20 11/08/20 11/08/20 05:13 05:16 05:18 Temperature Pulse Rate 74 73 75 Respiratory Rate Blood Pressure 136/76 Blood Pressure [Left] O2 Sat by Pulse 98 98 Oximetry 11/08/20 11/08/20 11/08/20 05:23 05:28 05:33 Temperature Pulse Rate 74 80 82 Respiratory Rate Blood Pressure Blood Pressure [Left] O2 Sat by Pulse 100 100 98 Oximetry 11/08/20 11/08/20 11/08/20 05:38 05:43 05:46 Temperature Pulse Rate 90 81 73 Respiratory Rate Blood Pressure 136/75 Blood Pressure [Left] O2 Sat by Pulse 98 100 Oximetry 11/08/20 11/08/20 11/08/20 05:48 05:53 05:58 Temperature Pulse Rate 83 69 73 Respiratory Rate Blood Pressure Blood Pressure [Left] O2 Sat by Pulse 99 99 98 Oximetry 11/08/20 11/08/20 11/08/20 06:03 06:08 06:13 Temperature Pulse Rate 74 70 69 Respiratory Rate Blood Pressure Blood Pressure [Left] O2 Sat by Pulse 98 98 98 Oximetry 11/08/20 11/08/20 11/08/20 06:17 06:18 06:23 Temperature Pulse Rate 67 69 74 Respiratory Rate Blood Pressure 160/83 Blood Pressure [Left] O2 Sat by Pulse 99 98 Oximetry 11/08/20 11/08/20 11/08/20 06:28 06:33 06:38 Temperature Pulse Rate 86 80 79 Respiratory Rate Blood Pressure Blood Pressure [Left] O2 Sat by Pulse 100 98 98 Oximetry 11/08/20 11/08/20 11/08/20 06:43 06:46 06:48 Temperature Pulse Rate 85 77 78 Respiratory Rate Blood Pressure 135/86 Blood Pressure [Left] O2 Sat by Pulse 98 99 Oximetry 11/08/20 11/08/20 11/08/20 06:53 06:58 07:03 Temperature Pulse Rate 81 74 77 Respiratory Rate Blood Pressure Blood Pressure [Left] O2 Sat by Pulse 98 98 97 Oximetry 11/08/20 11/08/20 11/08/20 07:08 07:13 07:16 Temperature Pulse Rate 76 78 76 Respiratory Rate Blood Pressure 150/87 Blood Pressure [Left] O2 Sat by Pulse 97 99 Oximetry 11/08/20 11/08/20 11/08/20 07:18 07:23 07:28 Temperature Pulse Rate 71 73 73 Respiratory Rate Blood Pressure Blood Pressure [Left] O2 Sat by Pulse 99 98 98 Oximetry 11/08/20 11/08/20 11/08/20 07:33 07:38 07:43 Temperature Pulse Rate 75 75 71 Respiratory Rate Blood Pressure Blood Pressure [Left] O2 Sat by Pulse 98 98 98 Oximetry 11/08/20 11/08/20 11/08/20 07:47 07:48 07:49 Temperature 98.4 F Pulse Rate 78 70 76 Respiratory 18 Rate Blood Pressure 167/90 152/81 Blood Pressure 152/81 [Left] O2 Sat by Pulse 96 98 Oximetry 11/08/20 11/08/20 11/08/20 07:53 07:58 08:03 Temperature Pulse Rate 88 85 88 Respiratory Rate Blood Pressure Blood Pressure [Left] O2 Sat by Pulse 99 99 100 Oximetry 11/08/20 11/08/20 11/08/20 08:08 08:13 08:16 Temperature Pulse Rate 84 82 84 Respiratory Rate Blood Pressure 141/86 Blood Pressure [Left] O2 Sat by Pulse 99 98 Oximetry 11/08/20 11/08/20 11/08/20 08:18 08:23 08:28 Temperature Pulse Rate 79 83 85 Respiratory Rate Blood Pressure Blood Pressure [Left] O2 Sat by Pulse 98 100 99 Oximetry - Exam Breasts: normal Cardiovascular: Regular rate Lungs: Normal air movement Abdomen: Present: normal appearance, soft Vulva: both: normal Uterus: Present: normal, fundal height above umbilicus FHR: auscultation normal, category 1 Uterine Contraction Monitor Mode: External Uterine Contraction Pattern: Irregular Uterine Tone Measurement Phase: Resting - Labs Labs: Abnormal Labs 11/05/20 11/05/20 11/06/20 18:20 22:49 10:29 Creatinine 0.4 L POC Glucose Magnesium 2.70 H AST 41 H Lactate Dehydrogenase 482 H 194 H 11/06/20 11/07/20 11/07/20 11:39 00:37 07:47 Creatinine POC Glucose 106 H 126 H 66 L Magnesium AST Lactate Dehydrogenase 11/07/20 11/07/20 17:13 22:17 Creatinine POC Glucose 64 L 149 H Magnesium AST Lactate Dehydrogenase Laboratory Results - last 24 hr 11/05/20 11/06/20 11/07/20 10:20 Unknown 07:47 POC Glucose 66 L Urine Total Volume 2500 Ur Total Protein 24 Hr 175.00 Urine Total Protein 7 Coronavirus (PCR) Negative 11/07/20 11/07/20 11/07/20 10:40 17:13 22:17 POC Glucose 97 64 L 149 H Urine Total Volume Ur Total Protein 24 Hr Urine Total Protein Coronavirus (PCR) <JAVIER BONNER D - Last Filed: 11/09/20 00:27> Assessment and Plan Using the language line (#[id number]) plan of care explained, questions encouraged and answered for the patient and her . She voiced understanding and agrees with plan of care. No complaints, +UC's and +FMs. FHTs difficult to monitor d/t patient positioning. Previous FHT"s reviewed, currently Cat 1. Observe closely. - Patient Problems (1) 36 weeks gestation of Current Visit: Yes Status: Acute (2) Gestational HTN Current Visit: Yes Status: Acute Qualifiers: Trimester: third trimester Qualified Code(s): O13.3 - Gestational [-induced] hypertension without significant proteinuria, third trimester (3) Gestational diabetes mellitus (GDM) Current Visit: Yes Status: Acute Qualifiers: Gestational diabetes mellitus control: diet-controlled Trimester: third trimester Qualified Code(s): O24.410 - Gestational diabetes mellitus in , diet controlled (4) Advanced maternal age (AMA), 40 years or greater Current Visit: Yes Status: Acute (5) Group beta Strep positive Current Visit: Yes Status: Acute Objective - Vital Signs Vital Signs: Vital Signs - 12hr 11/08/20 11/08/20 11/08/20 06:23 06:28 06:33 Temperature Pulse Rate 74 86 80 Respiratory Rate Blood Pressure Blood Pressure [Left] O2 Sat by Pulse 98 100 98 Oximetry 11/08/20 11/08/20 11/08/20 06:38 06:43 06:46 Temperature Pulse Rate 79 85 77 Respiratory Rate Blood Pressure 135/86 Blood Pressure [Left] O2 Sat by Pulse 98 98 Oximetry 11/08/20 11/08/20 11/08/20 06:48 06:53 06:58 Temperature Pulse Rate 78 81 74 Respiratory Rate Blood Pressure Blood Pressure [Left] O2 Sat by Pulse 99 98 98 Oximetry 11/08/20 11/08/20 11/08/20 07:03 07:08 07:13 Temperature Pulse Rate 77 76 78 Respiratory Rate Blood Pressure Blood Pressure [Left] O2 Sat by Pulse 97 97 99 Oximetry 11/08/20 11/08/20 11/08/20 07:16 07:18 07:23 Temperature Pulse Rate 76 71 73 Respiratory Rate Blood Pressure 150/87 Blood Pressure [Left] O2 Sat by Pulse 99 98 Oximetry 11/08/20 11/08/20 11/08/20 07:28 07:33 07:38 Temperature Pulse Rate 73 75 75 Respiratory Rate Blood Pressure Blood Pressure [Left] O2 Sat by Pulse 98 98 98 Oximetry 11/08/20 11/08/20 11/08/20 07:43 07:47 07:48 Temperature Pulse Rate 71 78 70 Respiratory Rate Blood Pressure 167/90 Blood Pressure [Left] O2 Sat by Pulse 98 96 Oximetry 11/08/20 11/08/20 11/08/20 07:49 07:53 07:58 Temperature 98.4 F Pulse Rate 76 88 85 Respiratory 18 Rate Blood Pressure 152/81 Blood Pressure 152/81 [Left] O2 Sat by Pulse 98 99 99 Oximetry 11/08/20 11/08/20 11/08/20 08:03 08:08 08:13 Temperature Pulse Rate 88 84 82 Respiratory Rate Blood Pressure Blood Pressure [Left] O2 Sat by Pulse 100 99 98 Oximetry 11/08/20 11/08/20 11/08/20 08:16 08:18 08:23 Temperature Pulse Rate 84 79 83 Respiratory Rate Blood Pressure 141/86 Blood Pressure [Left] O2 Sat by Pulse 98 100 Oximetry 11/08/20 11/08/20 11/08/20 08:28 08:33 08:38 Temperature Pulse Rate 85 85 80 Respiratory Rate Blood Pressure Blood Pressure [Left] O2 Sat by Pulse 99 99 100 Oximetry 11/08/20 11/08/20 11/08/20 08:43 08:46 08:48 Temperature Pulse Rate 90 82 89 Respiratory Rate Blood Pressure 136/83 Blood Pressure [Left] O2 Sat by Pulse 97 98 Oximetry 11/08/20 11/08/20 11/08/20 08:53 08:58 09:03 Temperature Pulse Rate 89 93 H 89 Respiratory Rate Blood Pressure Blood Pressure [Left] O2 Sat by Pulse 98 99 99 Oximetry 11/08/20 11/08/20 11/08/20 09:08 09:13 09:16 Temperature Pulse Rate 93 H 94 H 91 H Respiratory Rate Blood Pressure 139/73 Blood Pressure [Left] O2 Sat by Pulse 98 99 Oximetry 11/08/20 11/08/20 11/08/20 09:18 09:23 09:28 Temperature Pulse Rate 91 H 92 H 92 H Respiratory Rate Blood Pressure Blood Pressure [Left] O2 Sat by Pulse 97 99 99 Oximetry 11/08/20 11/08/20 11/08/20 09:33 09:38 09:43 Temperature Pulse Rate 99 H 90 89 Respiratory Rate Blood Pressure Blood Pressure [Left] O2 Sat by Pulse 98 98 98 Oximetry 11/08/20 11/08/20 11/08/20 09:46 09:47 09:48 Temperature Pulse Rate 88 106 H 87 Respiratory Rate Blood Pressure 131/79 Blood Pressure [Left] O2 Sat by Pulse 90 98 Oximetry 11/08/20 11/08/20 11/08/20 09:53 09:58 10:03 Temperature Pulse Rate 86 94 H 92 H Respiratory Rate Blood Pressure Blood Pressure [Left] O2 Sat by Pulse 98 97 98 Oximetry 11/08/20 11/08/20 11/08/20 10:08 10:13 10:16 Temperature Pulse Rate 84 91 H 83 Respiratory Rate Blood Pressure 142/58 Blood Pressure [Left] O2 Sat by Pulse 99 100 Oximetry 11/08/20 11/08/20 11/08/20 10:18 10:23 10:28 Temperature Pulse Rate 87 87 86 Respiratory Rate Blood Pressure Blood Pressure [Left] O2 Sat by Pulse 99 99 99 Oximetry 11/08/20 11/08/20 11/08/20 10:33 10:38 10:43 Temperature Pulse Rate 88 87 87 Respiratory Rate Blood Pressure Blood Pressure [Left] O2 Sat by Pulse 99 98 98 Oximetry 11/08/20 11/08/20 11/08/20 10:46 10:48 10:53 Temperature Pulse Rate 85 86 85 Respiratory Rate Blood Pressure 138/84 Blood Pressure [Left] O2 Sat by Pulse 99 99 Oximetry 11/08/20 11/08/20 11/08/20 10:58 11:03 11:04 Temperature Pulse Rate 84 87 87 Respiratory Rate Blood Pressure Blood Pressure [Left] O2 Sat by Pulse 99 97 94 Oximetry 11/08/20 11/08/20 11/08/20 12:03 12:08 12:13 Temperature Pulse Rate 87 84 84 Respiratory Rate Blood Pressure Blood Pressure [Left] O2 Sat by Pulse 85 98 100 Oximetry 11/08/20 11/08/20 11/08/20 12:18 12:21 12:23 Temperature Pulse Rate 82 90 82 Respiratory Rate Blood Pressure Blood Pressure [Left] O2 Sat by Pulse 99 92 99 Oximetry 11/08/20 11/08/20 11/08/20 12:28 12:33 12:38 Temperature Pulse Rate 86 76 83 Respiratory Rate Blood Pressure Blood Pressure [Left] O2 Sat by Pulse 100 100 99 Oximetry 11/08/20 11/08/20 11/08/20 12:43 12:48 12:53 Temperature Pulse Rate 81 85 82 Respiratory Rate Blood Pressure Blood Pressure [Left] O2 Sat by Pulse 100 97 98 Oximetry 11/08/20 11/08/20 11/08/20 12:58 13:03 13:08 Temperature Pulse Rate 83 82 80 Respiratory Rate Blood Pressure Blood Pressure [Left] O2 Sat by Pulse 100 100 99 Oximetry 11/08/20 11/08/20 11/08/20 13:13 13:18 13:23 Temperature Pulse Rate 78 82 78 Respiratory Rate Blood Pressure Blood Pressure [Left] O2 Sat by Pulse 99 99 99 Oximetry 11/08/20 11/08/20 11/08/20 13:28 13:33 13:38 Temperature Pulse Rate 89 87 87 Respiratory Rate Blood Pressure Blood Pressure [Left] O2 Sat by Pulse 98 99 99 Oximetry 11/08/20 11/08/20 11/08/20 13:43 13:48 13:53 Temperature Pulse Rate 87 86 80 Respiratory Rate Blood Pressure Blood Pressure [Left] O2 Sat by Pulse 97 98 97 Oximetry 11/08/20 11/08/20 11/08/20 13:58 14:03 14:08 Temperature Pulse Rate 84 91 H 77 Respiratory Rate Blood Pressure Blood Pressure [Left] O2 Sat by Pulse 99 98 99 Oximetry 11/08/20 11/08/20 11/08/20 14:13 14:18 14:23 Temperature Pulse Rate 79 82 76 Respiratory Rate Blood Pressure Blood Pressure [Left] O2 Sat by Pulse 98 100 98 Oximetry 11/08/20 11/08/20 11/08/20 14:28 14:33 14:38 Temperature Pulse Rate 75 76 77 Respiratory Rate Blood Pressure Blood Pressure [Left] O2 Sat by Pulse 100 98 99 Oximetry 11/08/20 11/08/20 11/08/20 14:43 14:48 14:53 Temperature Pulse Rate 82 74 76 Respiratory Rate Blood Pressure Blood Pressure [Left] O2 Sat by Pulse 99 98 98 Oximetry 11/08/20 11/08/20 11/08/20 14:58 15:03 15:08 Temperature Pulse Rate 78 79 74 Respiratory Rate Blood Pressure Blood Pressure [Left] O2 Sat by Pulse 98 99 98 Oximetry 11/08/20 11/08/20 11/08/20 15:13 15:18 15:23 Temperature Pulse Rate 73 70 78 Respiratory Rate Blood Pressure Blood Pressure [Left] O2 Sat by Pulse 98 98 97 Oximetry 11/08/20 11/08/20 11/08/20 15:28 15:33 15:38 Temperature Pulse Rate 74 81 77 Respiratory Rate Blood Pressure Blood Pressure [Left] O2 Sat by Pulse 96 97 99 Oximetry 11/08/20 11/08/20 11/08/20 15:43 15:48 15:53 Temperature Pulse Rate 85 95 H 95 H Respiratory Rate Blood Pressure Blood Pressure [Left] O2 Sat by Pulse 99 98 100 Oximetry 11/08/20 11/08/20 11/08/20 15:58 16:03 16:08 Temperature Pulse Rate 85 92 H 88 Respiratory Rate Blood Pressure Blood Pressure [Left] O2 Sat by Pulse 98 99 99 Oximetry 11/08/20 11/08/20 11/08/20 16:13 16:18 16:23 Temperature Pulse Rate 91 H 91 H 91 H Respiratory Rate Blood Pressure Blood Pressure [Left] O2 Sat by Pulse 97 98 98 Oximetry 11/08/20 11/08/20 11/08/20 16:28 16:33 16:38 Temperature Pulse Rate 91 H 86 88 Respiratory Rate Blood Pressure Blood Pressure [Left] O2 Sat by Pulse 97 99 98 Oximetry 11/08/20 11/08/20 11/08/20 16:43 16:48 16:53 Temperature Pulse Rate 85 89 86 Respiratory Rate Blood Pressure Blood Pressure [Left] O2 Sat by Pulse 98 98 98 Oximetry 11/08/20 11/08/20 11/08/20 16:58 17:03 17:08 Temperature Pulse Rate 85 89 82 Respiratory Rate Blood Pressure Blood Pressure [Left] O2 Sat by Pulse 98 96 97 Oximetry 11/08/20 11/08/20 11/08/20 17:13 17:18 17:23 Temperature Pulse Rate 91 H 88 83 Respiratory Rate Blood Pressure Blood Pressure [Left] O2 Sat by Pulse 98 99 99 Oximetry 11/08/20 11/08/20 11/08/20 17:24 17:28 17:33 Temperature Pulse Rate 89 84 88 Respiratory Rate Blood Pressure Blood Pressure [Left] O2 Sat by Pulse 92 95 98 Oximetry 11/08/20 11/08/20 11/08/20 17:38 17:43 17:48 Temperature Pulse Rate 87 88 86 Respiratory Rate Blood Pressure Blood Pressure [Left] O2 Sat by Pulse 96 96 97 Oximetry 11/08/20 11/08/20 11/08/20 17:53 17:58 18:03 Temperature Pulse Rate 87 88 88 Respiratory Rate Blood Pressure Blood Pressure [Left] O2 Sat by Pulse 96 99 96 Oximetry 11/08/20 11/08/20 11/08/20 18:06 18:09 18:14 Temperature Pulse Rate 57 L 86 92 H Respiratory Rate Blood Pressure Blood Pressure [Left] O2 Sat by Pulse 72 L 98 100 Oximetry - Labs Labs: Abnormal Labs 11/05/20 11/05/20 11/06/20 18:20 22:49 10:29 Creatinine 0.4 L POC Glucose Magnesium 2.70 H AST 41 H Lactate Dehydrogenase 482 H 194 H 11/06/20 11/07/20 11/07/20 11:39 00:37 07:47 Creatinine POC Glucose 106 H 126 H 66 L Magnesium AST Lactate Dehydrogenase 11/07/20 11/07/20 11/08/20 17:13 22:17 08:18 Creatinine POC Glucose 64 L 149 H 58 L Magnesium AST Lactate Dehydrogenase Laboratory Results - last 24 hr 11/07/20 11/07/20 11/08/20 17:13 22:17 08:18 POC Glucose 64 L 149 H 58 L 11/08/20 15:02 POC Glucose 100
[2020-11-08] MEDS: BETAMET ACET/BETAMET NA PH 6 MG/ML INJ 5 ML MDV IM SCH (11:55)
[2020-11-08] MEDS ORDERED: OXYTOCIN DRIP 30 UNITS/500 ML BAG IV SCH (13:00)
--- NOTE | 2020-11-08 13:18 | Consultation ---
Consult Note - Parent Education I met with parent(s) and discussed the following:: Need for NICU admission, Poss ible need for intubation and surfactant or other resp support, Temperature regulation, Importance of providing breast milk & encouraged pumping aft delivery, Slow feeding advancement and monitoring of tolerance. NG/OG feeds, Need to monitor for jaundice, Data for survival & survival without significant co-morbidities Parent(s) demonstrated understanding of all the information:: Yes Additional Comment: 50 yo mother who was sent from [facility] for elevated BPs in office at 35 weeks. PNR: A+, rubella immune, Hep B negative, HIV negative, RPR non reactive, GBS unknown, Bethamethasone x1 given thus far. Mother gestational diabetic with GHTN. Assessment and Plan - Assessment Gestation:: 36 Baby's gender: Female - Plan Plan: Will attend delivery if requested/needed Please call NICU with questions
[2020-11-08] MEDS ORDERED: LACTATED RINGERS 1,000 ML ONE (14:56)
[2020-11-08] MEDS ORDERED: LACTATED RINGERS 1,000 ML IV SCH (18:45)
[2020-11-08] MEDS ORDERED: hydrALAZINE 20 MG/1 ML INJ IV PRN (18:53)
[2020-11-08] MEDS ORDERED: AMPICILLIN/NS 2 GM/100 ML 2 GM/100 ML BAG IV ONE (19:43)
[2020-11-08] MEDS ORDERED: AMPICILLIN/NS 1 GM/50 ML 1 GM/50 ML BAG IV SCH (20:00)
[2020-11-08] MEDS ORDERED: DINOPROSTONE 10 MG VAG SUPP VG NR ×2 (21:00→23:00)
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
--- NOTE | 2020-11-09 09:32 | XRay Report ---
. CHEST 1 VIEW INDICATION: labored breathing COMPARISON: 11/05/2020 FINDINGS: Support devices: None Heart: Stable. Lungs/Pleura: Left hemidiaphragm is again markedly elevated. Right lung and left upper lung appear cl ear of acute disease. Additional findings: Left humeral head again appears to be subluxed inferiorly. IMPRESSION: 1. Significant left hemidiaphragm elevation but no convincing evidence of acute pulmonary disease. Signer Name: Lambert Jane MD Signed: 11/09/2020 9:27 AM Workstation Name: [id number]
[2020-11-09] MEDS: OXYTOCIN DRIP 30 UNITS/500 ML BAG IV SCH ×2 (10:23→16:13)
[2020-11-09] MEDS: PRENATAL VIT27-FE FUMARATE-FOLIC ACID VIT TAB PO SCH (10:40)
[2020-11-09] MEDS: BETAMET ACET/BETAMET NA PH 6 MG/ML INJ 5 ML MDV IM SCH (12:07)
[2020-11-09] MEDS ORDERED: ePHEDrine SULFATE 50 MG/1 ML INJ ONE ×2 (13:10→21:16)
[2020-11-09] MEDS ORDERED: ePHEDrine SULFATE 50 MG/1 ML INJ IV PRN (13:56)
[2020-11-09] MEDS ORDERED: NALOXONE 2 MG/2 ML INJ IV PRN (13:56)
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
--- NOTE | 2020-11-09 14:10 | Progress Note ---
Assessment and Plan Pt has good response to epidural Duff and internal monitors placed. BPs elevated initially 170/90, 160/90 Pt w/o c/o MEJIA, blurred vision, chest pain. SVE 4,100,-1 Pt resting. Will closely monitor BPs Consult with Dr Mary Raygoza given - Patient Problems (1) 36 weeks gestation of Onset Date: ~11/09/20 Current Visit: Yes Status: Acute (2) Gestational HTN Onset Date: ~11/09/20 Current Visit: Yes Status: Acute Qualifiers: Trimester: third trimester Qualified Code(s): O13.3 - Gestational [-induced] hypertension without significant proteinuria, third trimester (3) Gestational diabetes mellitus (GDM) Onset Date: ~11/09/20 Current Visit: Yes Status: Acute Qualifiers: Gestational diabetes mellitus control: diet-controlled Trimester: third trimester Qualified Code(s): O24.410 - Gestational diabetes mellitus in , diet controlled (4) Group beta Strep positive Onset Date: ~11/09/20 Current Visit: Yes Status: Acute Subjective - Subjective Date of service: 11/09/20 (comfortable with epidural) Principal diagnosis: IUP @ 36+1 weeks; GHTN, IOL Patient reports: movement normal, no new complaints, no loss of fluid, no vaginal bleeding, no contractions, no other Objective - Vital Signs Vital Signs: Vital Signs - 12hr 11/09/20 11/09/20 11/09/20 02:06 02:11 02:16 Temperature Pulse Rate 86 89 85 Respiratory Rate Blood Pressure O2 Sat by Pulse 97 96 94 Oximetry 11/09/20 11/09/20 11/09/20 02:21 02:26 02:28 Temperature Pulse Rate 101 H 89 99 H Respiratory Rate Blood Pressure O2 Sat by Pulse 97 98 94 Oximetry 11/09/20 11/09/20 11/09/20 02:31 02:33 02:36 Temperature Pulse Rate 89 85 84 Respiratory Rate Blood Pressure 136/63 O2 Sat by Pulse 97 97 Oximetry 11/09/20 11/09/20 11/09/20 02:41 02:46 02:51 Temperature Pulse Rate 91 H 88 85 Respiratory Rate Blood Pressure O2 Sat by Pulse 96 96 96 Oximetry 11/09/20 11/09/20 11/09/20 02:56 03:01 03:06 Temperature Pulse Rate 89 88 86 Respiratory Rate Blood Pressure O2 Sat by Pulse 98 97 97 Oximetry 11/09/20 11/09/20 11/09/20 03:11 03:16 03:21 Temperature Pulse Rate 84 84 84 Respiratory Rate Blood Pressure 139/63 O2 Sat by Pulse 96 97 97 Oximetry 11/09/20 11/09/20 11/09/20 03:26 03:31 03:36 Temperature Pulse Rate 83 89 84 Respiratory Rate Blood Pressure O2 Sat by Pulse 96 98 97 Oximetry 11/09/20 11/09/20 11/09/20 03:41 03:46 03:52 Temperature Pulse Rate 86 89 91 H Respiratory Rate Blood Pressure O2 Sat by Pulse 97 96 95 Oximetry 11/09/20 11/09/20 11/09/20 03:57 04:02 04:07 Temperature Pulse Rate 85 84 80 Respiratory Rate Blood Pressure O2 Sat by Pulse 96 96 96 Oximetry 11/09/20 11/09/20 11/09/20 04:12 04:15 04:16 Temperature 98.6 F Pulse Rate 84 85 Respiratory 14 Rate Blood Pressure 132/92 O2 Sat by Pulse 97 Oximetry 11/09/20 11/09/20 11/09/20 04:17 04:22 04:27 Temperature Pulse Rate 88 87 91 H Respiratory Rate Blood Pressure O2 Sat by Pulse 97 97 97 Oximetry 11/09/20 11/09/20 11/09/20 04:32 04:37 04:42 Temperature Pulse Rate 85 91 H 87 Respiratory Rate Blood Pressure O2 Sat by Pulse 96 97 97 Oximetry 11/09/20 11/09/20 11/09/20 04:47 04:52 04:57 Temperature Pulse Rate 90 90 89 Respiratory Rate Blood Pressure O2 Sat by Pulse 97 96 100 Oximetry 11/09/20 11/09/20 11/09/20 05:02 05:07 05:12 Temperature Pulse Rate 94 H 85 85 Respiratory Rate Blood Pressure O2 Sat by Pulse 99 97 97 Oximetry 11/09/20 11/09/20 11/09/20 05:16 05:17 05:22 Temperature Pulse Rate 82 84 86 Respiratory Rate Blood Pressure 144/67 O2 Sat by Pulse 91 97 97 Oximetry 11/09/20 11/09/20 11/09/20 05:27 05:32 05:37 Temperature Pulse Rate 90 85 83 Respiratory Rate Blood Pressure O2 Sat by Pulse 97 98 98 Oximetry 11/09/20 11/09/20 11/09/20 05:42 05:47 05:52 Temperature Pulse Rate 72 77 82 Respiratory Rate Blood Pressure O2 Sat by Pulse 97 95 96 Oximetry 11/09/20 11/09/20 11/09/20 05:57 06:02 06:07 Temperature Pulse Rate 79 77 78 Respiratory Rate Blood Pressure O2 Sat by Pulse 98 98 98 Oximetry 11/09/20 11/09/20 11/09/20 06:12 06:22 06:27 Temperature Pulse Rate 79 90 80 Respiratory Rate Blood Pressure O2 Sat by Pulse 98 94 99 Oximetry 11/09/20 11/09/20 11/09/20 06:32 06:37 06:42 Temperature Pulse Rate 78 80 90 Respiratory Rate Blood Pressure O2 Sat by Pulse 98 98 98 Oximetry 11/09/20 11/09/20 11/09/20 06:47 06:51 06:52 Temperature Pulse Rate 76 89 79 Respiratory Rate Blood Pressure O2 Sat by Pulse 98 89 97 Oximetry 11/09/20 11/09/20 11/09/20 06:57 07:02 07:07 Temperature Pulse Rate 79 85 90 Respiratory Rate Blood Pressure O2 Sat by Pulse 99 99 99 Oximetry 11/09/20 11/09/20 11/09/20 07:12 07:16 07:17 Temperature Pulse Rate 88 87 87 Respiratory Rate Blood Pressure 132/71 O2 Sat by Pulse 98 100 Oximetry 11/09/20 11/09/20 11/09/20 07:22 07:27 07:32 Temperature Pulse Rate 79 84 84 Respiratory Rate Blood Pressure O2 Sat by Pulse 100 99 100 Oximetry 11/09/20 11/09/20 11/09/20 07:37 07:42 07:47 Temperature Pulse Rate 85 81 77 Respiratory Rate Blood Pressure O2 Sat by Pulse 100 100 99 Oximetry 11/09/20 11/09/20 11/09/20 08:10 08:15 08:17 Temperature Pulse Rate 81 78 73 Respiratory Rate Blood Pressure 133/88 O2 Sat by Pulse 100 100 Oximetry 11/09/20 11/09/20 11/09/20 08:20 08:25 08:30 Temperature Pulse Rate 76 88 87 Respiratory Rate Blood Pressure O2 Sat by Pulse 99 98 97 Oximetry 11/09/20 11/09/20 11/09/20 08:35 08:40 08:45 Temperature Pulse Rate 88 94 H 86 Respiratory Rate Blood Pressure O2 Sat by Pulse 99 98 97 Oximetry 11/09/20 11/09/20 11/09/20 08:50 10:05 10:07 Temperature Pulse Rate 59 L 72 90 Respiratory Rate Blood Pressure 129/66 O2 Sat by Pulse 84 100 Oximetry 11/09/20 11/09/20 11/09/20 10:10 10:15 10:20 Temperature Pulse Rate 89 74 86 Respiratory Rate Blood Pressure 126/73 O2 Sat by Pulse 100 100 100 Oximetry 11/09/20 11/09/20 11/09/20 10:25 10:30 10:35 Temperature Pulse Rate 87 93 H 95 H Respiratory Rate Blood Pressure O2 Sat by Pulse 100 100 97 Oximetry 11/09/20 11/09/20 11/09/20 10:40 10:41 10:45 Temperature Pulse Rate 84 93 H 96 H Respiratory Rate Blood Pressure 123/91 123/91 O2 Sat by Pulse 100 99 Oximetry 11/09/20 11/09/20 11/09/20 10:50 10:55 11:00 Temperature Pulse Rate 88 89 91 H Respiratory Rate Blood Pressure O2 Sat by Pulse 100 100 100 Oximetry 11/09/20 11/09/20 11/09/20 11:05 11:08 11:10 Temperature Pulse Rate 90 101 H 94 H Respiratory Rate Blood Pressure O2 Sat by Pulse 98 94 94 Oximetry 11/09/20 11/09/20 11/09/20 11:15 11:20 11:25 Temperature Pulse Rate 86 89 91 H Respiratory Rate Blood Pressure 142/79 O2 Sat by Pulse 96 98 98 Oximetry 11/09/20 11/09/20 11/09/20 11:30 11:35 11:40 Temperature Pulse Rate 86 85 84 Respiratory Rate Blood Pressure O2 Sat by Pulse 97 98 97 Oximetry 11/09/20 11/09/20 11/09/20 11:45 11:50 11:55 Temperature Pulse Rate 85 86 87 Respiratory Rate Blood Pressure O2 Sat by Pulse 97 97 96 Oximetry 11/09/20 11/09/20 11/09/20 12:00 12:05 12:10 Temperature Pulse Rate 81 82 80 Respiratory Rate Blood Pressure O2 Sat by Pulse 98 97 97 Oximetry 11/09/20 11/09/20 11/09/20 12:15 12:17 12:20 Temperature Pulse Rate 83 87 86 Respiratory Rate Blood Pressure 125/90 O2 Sat by Pulse 96 100 Oximetry 11/09/20 11/09/20 11/09/20 12:25 12:28 12:30 Temperature Pulse Rate 87 75 86 Respiratory Rate Blood Pressure O2 Sat by Pulse 99 93 92 Oximetry 11/09/20 11/09/20 11/09/20 12:35 12:36 12:40 Temperature Pulse Rate 97 H 91 H 102 H Respiratory Rate Blood Pressure O2 Sat by Pulse 100 91 97 Oximetry 11/09/20 11/09/20 11/09/20 12:43 12:45 12:50 Temperature Pulse Rate 93 H 92 H 84 Respiratory Rate Blood Pressure O2 Sat by Pulse 94 98 97 Oximetry 11/09/20 11/09/20 11/09/20 12:55 12:58 12:59 Temperature Pulse Rate 81 90 79 Respiratory Rate Blood Pressure 156/77 O2 Sat by Pulse 96 91 Oximetry 11/09/20 11/09/20 11/09/20 13:00 13:05 13:06 Temperature Pulse Rate 79 93 H 89 Respiratory Rate Blood Pressure O2 Sat by Pulse 97 95 89 Oximetry 11/09/20 11/09/20 11/09/20 13:10 13:15 13:16 Temperature Pulse Rate 87 93 H 78 Respiratory Rate Blood Pressure 164/88 O2 Sat by Pulse 98 100 Oximetry 11/09/20 11/09/20 11/09/20 13:19 13:20 13:24 Temperature Pulse Rate 78 78 82 Respiratory Rate Blood Pressure 163/90 165/98 O2 Sat by Pulse 98 Oximetry 11/09/20 11/09/20 11/09/20 13:25 13:26 13:28 Temperature Pulse Rate 77 83 81 Respiratory Rate Blood Pressure 166/75 156/79 O2 Sat by Pulse 98 Oximetry 11/09/20 11/09/20 11/09/20 13:30 13:31 13:32 Temperature Pulse Rate 85 90 89 Respiratory Rate Blood Pressure 151/72 165/83 O2 Sat by Pulse 97 93 Oximetry 11/09/20 11/09/20 11/09/20 13:34 13:35 13:36 Temperature Pulse Rate 77 88 81 Respiratory Rate Blood Pressure 147/67 154/91 O2 Sat by Pulse 100 Oximetry 11/09/20 11/09/20 11/09/20 13:38 13:40 13:45 Temperature Pulse Rate 76 83 90 Respiratory Rate Blood Pressure 167/96 O2 Sat by Pulse 81 L 100 Oximetry 11/09/20 11/09/20 11/09/20 13:50 13:54 13:55 Temperature Pulse Rate 85 80 84 Respiratory Rate Blood Pressure 175/94 O2 Sat by Pulse 98 98 Oximetry 11/09/20 14:00 Temperature Pulse Rate 80 Respiratory Rate Blood Pressure O2 Sat by Pulse 99 Oximetry - Exam Breasts: deferred Cardiovascular: Regular rate Lungs: Normal air movement Abdomen: Present: normal appearance, soft. Absent: distention, tenderness Uterus: Present: normal FHR: auscultation normal, category 1 Uterine Contraction Monitor Mode: Internal Cervical Dilatation: 4 (ISE/IUPC placed) Cervical Effacement Percentage: 100 station: -1 Uterine Contraction Pattern: Regular Uterine Tone Measurement Phase: Resting Uterine Contraction Intensity: Moderate Extremities: edema (pitting edema bilateral LE SCDs applied) - Labs Labs: Abnormal Labs 11/05/20 11/05/20 11/06/20 18:20 22:49 10:29 Creatinine 0.4 L POC Glucose Magnesium 2.70 H AST 41 H Lactate Dehydrogenase 482 H 194 H 11/06/20 11/07/20 11/07/20 11:39 00:37 07:47 Creatinine POC Glucose 106 H 126 H 66 L Magnesium AST Lactate Dehydrogenase 11/07/20 11/07/20 11/08/20 17:13 22:17 08:18 Creatinine POC Glucose 64 L 149 H 58 L Magnesium AST Lactate Dehydrogenase 11/08/20 11/09/20 17:29 12:02 Creatinine POC Glucose 196 H 119 H Magnesium AST Lactate Dehydrogenase Laboratory Results - last 24 hr 11/08/20 11/08/20 11/08/20 15:02 17:29 22:30 POC Glucose 100 196 H 87 11/09/20 11/09/20 08:08 12:02 POC Glucose 91 119 H
[2020-11-09] MEDS: fentaNYL-BUPIV 2 MCG/ML-0.125% 200 MCG/100 ML BAG EPIDURAL SCH ×2 (14:27→14:44)
--- NOTE | 2020-11-09 14:47 | Progress Note ---
Labor Epidural - Labor Epidural Start Time: 13:14 Stop Time: 13:20 Performed by:: RIK OLSON Procedure: . Patient is requesting a laboring epidural for laboring pain. Patient IDed, H&P reviewed, all questions and concerns were answered, and consent was signed. Timeout was performed at bedside. Patient in sitting position. Sterile prep and drape was performed. [3] ml of 1% lidocaine skin wheal at L[3]- L [4]. 18- gauge Tuohy epidural needle was advanced to loss of resistance with saline technique 6CM. Negative CSF negative blood. Epidural catheter advanced to [10] centimeters. [NEGATIVE] Aspiration [NEGATIVE] test dose. Sterile dressing applied. Patient tolerated procedure.
--- NOTE | 2020-11-09 16:24 | Event Note ---
Date: 11/09/20 (variable decels) SVE 6,100,0 Position chg, O2 via facemask Cat 1 BP 140/70 Re-eval as needed
[2020-11-09] MEDS ORDERED: FAMOTIDINE 20 MG/2 ML INJ IV SCH (18:34)
[2020-11-09] MEDS ORDERED: BICITRA ORAL LIQD 30ML PO SCH (18:34)
--- NOTE | 2020-11-09 18:41 | Event Note ---
Date: 11/09/20 (Attempted to push) Pt complete Attempted to push for several ctx Pt became very SOB, wheezing, using accessory muscles. Dr Mary musa. Pt evaled on arrival presenting part too high for vacuum. Pt consented for section. Thao anesthesia here Decision made for general anesthesia. Risks explained , bleeding, need for transfusion, damage to surrounding organs, need for c/s with future pregnancies. All concerns addressed.
[2020-11-09] MEDS ORDERED: ceFAZolin/Water 2 GM/20 ML 2 GM/20 ML SYRINGE IV ONE (18:44)
[2020-11-09] MEDS ORDERED: LACTATED RINGERS 1,000 ML IV SCH (18:45)
[2020-11-09] MEDS ORDERED: LIDOCAINE 2%/EPINEPHRINE 1:200,000 VIAL (20 ML) INFILTRATI ONE (18:48)
--- NOTE | 2020-11-09 18:56 | Event Note ---
Date: 11/09/20 After consultation with the anesthesia staff we will attempt to perform a section using the patient's epidural. Rationale is due to patient's history of tracheotomy and possibly scarring of her trachea produced difficult intubation will try to avoid general anesthesia unless absolutely necessary. Discussed the rationale with the patient and offered her the use of the language line which he states that she did not need patient does agree to proceed. Patient does understand that she will be feeling very uncomfortable doing this procedure but we will continue to monitor her oxygen saturation throughout and if possible give her some sedation once the infant is delivered.
[2020-11-09] MEDS ORDERED: OXYTOCIN DRIP 30 UNITS/500 ML BAG IV SCH (19:00)
[2020-11-09] MEDS ORDERED: METOCLOPRAMIDE 10 MG/2 ML INJ IV ONE (19:34)
[2020-11-09] MEDS ORDERED: SODIUM CHLORIDE 0.9% IRR 1,500 ML BOTTLE IR ONE (19:54)
[2020-11-09] MEDS ORDERED: WATER FOR IRRIG STERILE 1,500 ML BOTTLE IR ONE (19:55)
[2020-11-09] MEDS ORDERED: KETOROLAC 30 MG/1 ML INJ ONE (20:26)
[2020-11-09] MEDS ORDERED: LANOLIN/ZINC/DIMETHICONE (LANSINOH) 7 GM TP PRN (20:36)
[2020-11-09] MEDS ORDERED: WITCH HAZEL/ GLYCERIN PAD TP PRN (20:36)
[2020-11-09] MEDS ORDERED: CALCIUM GLUCONATE 1000 MG/10 ML INJ IV PRN (20:42)
[2020-11-09] MEDS ORDERED: PHENYLEPHRINE/NS 1,000 MCG/10 ML SYRINGE (OR USE) IV ONE (20:55)
[2020-11-09] MEDS ORDERED: ONDANSETRON 4 MG/2 ML INJ ONE (21:00)
[2020-11-09] MEDS ORDERED: ACETAMINOPHEN 500 MG TAB PO PRN (21:00)
[2020-11-09] MEDS ORDERED: MAGNESIUM SULFATE 40GM/1000ML 40 GM/1,000 ML BAG IV SCH (21:00)
[2020-11-09] MEDS ORDERED: IBUPROFEN 800 MG TAB PO PRN (21:28)
--- NOTE | 2020-11-09 21:35 | Operative Report ---
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 Procedure name(s): Primary low transverse section with vertical skin incision Surgeon: Elpidio Hernandez MD Stud Driver: Belgica Marion, certified nurse ranger aide Anesthesia: Epidural EBL: 1000 cc Complications: Caudal extension of the uterine incision Findings: Patient with posterior leiomyoma normal uterus approximately 4 cm in diameter she had normal tubes and ovaries bilaterally same female infant weight 4 pounds 15 ounces Apgars 8 at 1 minute and 9 at 5 minutes Specimen(s): None Indication: Patient due to paralysis of left upper extremity and her left lorin- diaphragm had difficulty with breathing when in the supine position Procedure: The patient was brought to the operating room. Her epidural was dosed without any complications. Patient was was positioned in the inclined position due to persistent sensation of not been able to bleed in supine position. Prepped and draped in the usual sterile manner. After testing for adequate anesthesia level, a low vertical incision was made was made. This incision was taken down to the fascia. The fascia was was incised and the peritoneum was entered by grasping with 2 hemostats and cutting with Metzenbaum scissors. This incision was extended cephadlly and caudally with care not to damage the bladder below. The Kevin self-retaining tractor was then placed without any difficulty. The bladder flap was then formed sharply and bluntly with Metzenbaum scissors. A transverse incision was made in lower uterine segment. This incision was extended laterally with the operators fingers. The amniotic sac was then entered bluntly with the seismograph operator helper's fingers. The head was very low and had to be delivered with the assistance of ranger aide would pushing the head without the and with placing patient in supine position. The was delivered from the vertex position. Bulb suction on the mother's abdomen. Cord was double clamped and cut. The was then passed to the nursery personnel who were in attendance. The above scores were given by the nursery personnel. The placenta was then bluntly removed. The uterus was then externalized and wiped clean the remaining products. The uterine incision extension was then seen. Extension was inspected and did not found not to involve the bladder. This extension was then closed in a running manner. The uterine incision was then closed in 2 layers. The first incision was closed in a locking manner using 0 Vicryl. This was followed by imbricating stitch also with 0 Vicryl. This closure was hemostatic after addition of 2 [id number] sutures. The bladder flap was copiously irrigated and found to be hemostatic. The pelvis was copiously irrigated and found to be hemostatic. The uterus was then placed back to the patient's abdomen. Surgicel was placed along the uterine incision. The retractors were removed. The rectus muscles were inspected and found to be hemostatic. The fascia and peritoneum was closed en bloc with 0 Vicryl. This incision was hemostatic after irrigation and Bovie. The skin was reapproximated with 4-0 Vicryl subcuticularly. The patient tolerated procedure well. Her urine was bloody prior to procedure and appeared to the same after the procedure. The infant was admitted to the well baby nursery. The patient was accompanied to recovery room in good condition. Instrument count correct times 3.
[2020-11-09 22:01] LABS: Hematocrit 24.8 % (30.3-42.9); Hemoglobin 8.2 gm/dl (10.1-14.3)
[2020-11-09] MEDS ORDERED: SODIUM CHLORIDE 0.9% 1000 ML 1,000 ML ONE (22:12)
[2020-11-09] MEDS ORDERED: SODIUM CHLORIDE 0.9% 500 ML 500 ML ONE (22:12)
--- NOTE | 2020-11-09 22:16 | Anesthesia Day of Surgery ---
Anesthesia Day of Surgery - Day of Surgery Patient Examined: Yes Patient H&P Reviewed: Yes Patient is NPO: Yes Beta Blockers: Yes Cardiac Clearance: No Pulmonary Clearance: No Thompson's Test: N/A
[2020-11-09] MEDS ORDERED: SODIUM CHLORIDE 0.9% 500 ML 500 ML IV ONE (22:17)
--- NOTE | 2020-11-09 22:21 | Event Note ---
Date: 11/09/20 Patient with hypotension.. With systolics less than 100. Heart rate around 100. Abdomen is soft. Stat H&H revealed acute blood loss we will transfuse discussed with patient which he agrees
[2020-11-10] MEDS ORDERED: ceFAZolin/NS 1 GM/50 ML 1 GM/50 ML BAG IV SCH ×2 (02:00→16:00)
[2020-11-10 02:37] LABS: Hematocrit 28.8 % (30.3-42.9); Hemoglobin 9.8 gm/dl (10.1-14.3)
--- NOTE | 2020-11-10 06:58 | Progress Note ---
Assessment and Plan - Patient Problems (1) delivery delivered Onset Date: ~11/09/20 Current Visit: Yes Status: Acute Plan to address problem: Pt in good spirits this AM.Will advance diet to soft GI diet Pt told RN she was afraid of taking pain meds w/o eating. BP 140/80 Labetalol 200mg BID given. Dressing D&I Will remove dressing tomorrow AM. Will plan to move pt to /B @ 0900 All concerns addressed Subjective - Subjective Date of service: 11/10/20 (pt in very good spirits) Principal diagnosis: IUP @ 36+1 weeks; GHTN, IOL : in NICU (holding; when pt goes to [facility] baby will transport with them) Objective - Vital Signs Latest vital signs: Vital Signs Temp Pulse Resp BP Pulse Ox 11/10/20 06:52 93 H 94 11/10/20 06:50 90 95 11/10/20 06:48 103 H 142/80 11/10/20 06:45 101 H 96 11/10/20 06:40 100 H 96 11/10/20 06:38 99 H 94 11/10/20 06:35 100 H 97 11/10/20 06:30 94 H 98 11/10/20 06:29 97 H 142/80 11/10/20 06:25 100 H 98 11/10/20 06:20 96 H 97 11/10/20 06:15 96 H 96 11/10/20 06:12 97 H 94 11/10/20 06:10 95 H 97 11/10/20 06:05 98 H 95 11/10/20 06:03 101 H 93 11/10/20 06:00 112 H 97 11/10/20 05:56 99 H 94 11/10/20 05:55 96 H 94 11/10/20 05:50 103 H 93 11/10/20 05:45 107 H 96 11/10/20 05:40 112 H 81 L 11/10/20 05:37 115 H 0 L 11/10/20 05:35 109 H 96 11/10/20 05:32 114 H 93 11/10/20 05:30 98 H 97 11/10/20 05:29 114 H 155/95 11/10/20 05:27 110 H 81 L 11/10/20 05:25 101 H 98 11/10/20 05:20 99 H 98 05/09/01 05:15 98 H 97 02 05:10 99 H 98 /09/01 05:05 99 H 98 11/10/20 05:00 96 H 98 11/10/20 04:55 97 H 98 11/10/20 04:50 97 H 98 11/10/20 04:45 95 H 98 11/10/20 04:40 99 H 98 02 04:35 97 H 98 11/10/20 04:30 100 H 98 05/02 04:29 99 H 115/89 05 04:25 99 H 98 /09/01 04:20 96 H 97 11/10/20 04:15 98 H 98 11/10/20 04:10 100 H 98 11/10/20 04:05 98 H 98 11/10/20 04:00 102 H 98 11/10/20 03:55 105 H 98 11/10/20 03:50 108 H 98 11/10/20 03:45 111 H 96 /02 03:43 110 H 93 /02 03:40 114 H 86 /02 03:36 110 H 93 /02 03:35 112 H 98 05/02 03:30 111 H 98 /02 03:29 111 H 128/94 /02 03:25 111 H 98 /02 03:20 109 H 97 /02/ 03:15 112 H 98 02 03:10 107 H 98 02 03:05 111 H 99 02 03:00 104 H 97 05/02 02:55 105 H 97 02 02:50 112 H 97 05/02/ 02:45 107 H 98 /02 02:41 112 H 138/81 93 02 02:40 106 H 96 02 02:35 110 H 97 05/02 02:30 109 H 97 02 02:29 110 H 94 05/02/ 02:25 111 H 97 05/02 02:20 116 H 97 05/02 02:15 111 H 98 0502 02:10 111 H 97 05/02/21 02:05 110 H 99 11/10/20 02:00 111 H 99 11/10/20 01:55 113 H 98 11/10/20 01:50 116 H 98 11/10/20 01:45 109 H 98 11/10/20 01:40 111 H 97 11/10/20 01:35 112 H 99 11/10/20 01:30 115 H 99 11/10/20 01:29 111 H 126/77 11/10/20 01:25 113 H 99 11/10/20 01:20 113 H 99 11/10/20 01:15 121 H 97 11/10/20 01:10 110 H 97 11/10/20 01:05 112 H 98 11/10/20 01:00 113 H 98 11/10/20 00:55 112 H 98 11/10/20 00:50 111 H 98 11/10/20 00:45 110 H 97 11/10/20 00:40 108 H 98 11/10/20 00:36 109 H 119/79 11/10/20 00:35 117 H 98 11/09/20 22:51 96.5 F L 108 H 22 99/65 98 11/09/20 19:29 110 H 100 11/09/20 19:24 111 H 100 11/09/20 19:19 107 H 100 11/09/20 19:15 104 H 149/101 11/09/20 19:14 109 H 100 11/09/20 19:09 88 100 11/09/20 19:05 91 H 94 11/09/20 19:04 99 H 100 11/09/20 18:59 93 H 100 11/09/20 18:50 101 H 100 11/09/20 18:45 98 H 100 11/09/20 18:43 96 H 142/84 11/09/20 18:40 102 H 100 11/09/20 18:35 98 H 99 11/09/20 18:30 94 H 99 11/09/20 18:25 87 96 11/09/20 18:20 88 99 11/09/20 18:15 97 H 96 11/09/20 18:10 86 97 11/09/20 18:05 91 H 99 11/09/20 18:00 87 100 11/09/20 17:55 90 99 11/09/20 17:50 102 H 99 05 17:45 102 H 100 05 17:40 104 H 94 05 17:37 111 H 94 05 17:35 87 98 05 17:30 89 96 05 17:29 93 H 94 11/09/20 17:25 90 98 05 17:20 95 H 97 05 17:15 84 97 05 17:13 87 134/79 05 17:10 88 97 11/09/20 17:05 90 97 05 17:00 97 H 99 11/09/20 16:55 100 H 94 05 16:54 82 87 05 16:50 87 100 05 16:45 88 100 11/09/20 16:43 81 160/79 05 16:40 85 99 05 16:35 95 H 99 11/09/20 16:30 93 H 100 05 16:25 85 100 05 16:20 91 H 100 11/09/20 16:15 89 100 05 16:10 92 H 100 11/09/20 16:05 88 100 11/09/20 16:04 81 147/70 05 16:00 78 99 05 15:55 92 H 100 05 15:54 87 151/82 05 15:50 88 98 05 15:45 84 99 05 15:43 88 148/72 05 15:40 88 100 05 15:38 107 H 94 05 15:35 86 99 05 15:33 90 149/76 05 15:30 85 98 05 15:25 93 H 97 05 15:22 91 H 135/78 05 15:20 94 H 98 05 15:15 79 91 05 15:10 93 H 98 05 15:05 91 H 149/87 97 05 15:00 87 98 05 14:55 84 99 05/01/21 14:53 84 162/92 05 14:50 84 98 05 14:45 81 97 05 14:41 83 186/92 05 14:40 80 100 05 14:37 77 165/101 11/09/20 14:35 77 100 05 14:30 76 100 05 14:28 74 165/101 11/09/20 14:25 74 99 05 14:23 78 167/96 05 14:21 84 93 11/09/20 14:20 84 100 05 14:15 77 100 05 14:10 82 96 05 14:09 87 180/88 93 11/09/20 14:05 80 98 11/09/20 14:00 80 99 11/09/20 13:55 84 98 11/09/20 13:54 80 175/94 11/09/20 13:50 85 98 05 13:45 90 100 05 13:40 83 81 L 11/09/20 13:38 76 167/96 11/09/20 13:36 81 154/91 05 13:35 88 100 11/09/20 13:34 77 147/67 05 13:32 89 165/83 11/09/20 13:31 90 93 11/09/20 13:30 85 151/72 97 11/09/20 13:28 81 156/79 05 13:26 83 166/75 05 13:25 77 98 05 13:24 82 165/98 11/09/20 13:20 78 98 05 13:19 78 163/90 05 13:16 78 164/88 05 13:15 93 H 100 05 13:10 87 98 05 13:06 89 89 05 13:05 93 H 95 11/09/20 13:00 79 97 05 12:59 79 156/77 05 12:58 90 91 05 12:55 81 96 05 12:50 84 97 05/01/21 12:45 92 H 98 11/09/20 12:43 93 H 94 11/09/20 12:40 102 H 97 11/09/20 12:36 91 H 91 11/09/20 12:35 97 H 100 11/09/20 12:30 86 92 11/09/20 12:28 75 93 11/09/20 12:25 87 99 05 12:20 86 100 11/09/20 12:17 87 125/90 11/09/20 12:15 83 96 11/09/20 12:10 80 97 11/09/20 12:05 82 97 11/09/20 12:00 81 98 11/09/20 11:55 87 96 11/09/20 11:50 86 97 11/09/20 11:45 85 97 11/09/20 11:40 84 97 11/09/20 11:35 85 98 11/09/20 11:30 86 97 11/09/20 11:25 91 H 98 11/09/20 11:20 89 98 11/09/20 11:15 86 142/79 96 11/09/20 11:10 94 H 94 11/09/20 11:08 101 H 94 11/09/20 11:05 90 98 11/09/20 11:00 91 H 100 11/09/20 10:55 89 100 11/09/20 10:50 88 100 11/09/20 10:45 96 H 99 11/09/20 10:41 93 H 123/91 11/09/20 10:40 84 123/91 100 11/09/20 10:35 95 H 97 11/09/20 10:30 93 H 100 11/09/20 10:25 87 100 11/09/20 10:20 86 100 05 10:15 74 126/73 100 05 10:10 89 100 05 10:07 90 129/66 11/09/20 10:05 72 100 05 08:50 59 L 84 11/09/20 08:45 86 97 05 08:40 94 H 98 11/09/20 08:35 88 99 05 08:30 87 97 11/09/20 08:25 88 98 05 08:20 76 99 05/01/21 08:17 73 133/88 11/09/20 08:15 78 100 11/09/20 08:10 81 100 11/09/20 07:47 77 99 11/09/20 07:42 81 100 11/09/20 07:37 85 100 11/09/20 07:32 84 100 11/09/20 07:27 84 99 11/09/20 07:22 79 100 11/09/20 07:17 87 100 11/09/20 07:16 87 132/71 11/09/20 07:12 88 98 11/09/20 07:07 90 99 11/09/20 07:02 85 99 11/09/20 06:57 79 99 Intake and Output 11/09/20 11/09/20 11/10/20 14:59 22:59 06:59 Intake Total 923.333 250 Balance 923.333 250 Intake: IV 923.333 PITOCin/NS 30 UNIT/500ML 23.333 30 units In 500 ml @ 4 MILLIUNITS/MIN 4 mls/hr IV Q30MIN [facility] Rx#: [id number] Blood Product 0 250 Leukoreduced Red Blood 0 250 Cells Unit [id number] - Exam Breasts: Present: normal Cardiovascular: Present: Regular rate Lungs: Present: Clear to auscultation, Other (breathing effort much improved this AM) Abdomen: Present: normal appearance, soft Uterus: Present: normal, fundal height below umbilicus Extremities: Present: normal Incision: Present: normal, dry, intact, dressed - Labs Labs: Abnormal lab results 11/09/20 11/09/20 11/09/20 Range/Units 12:02 19:19 21:47 Hgb 8.2 L (10.1-14.3) gm/dl Hct 24.8 L (30.3-42.9) % POC Glucose 119 H (70-105) mg/dL Crossmatch See Detail 11/10/20 Range/Units 02:18 Hgb 9.8 L (10.1-14.3) gm/dl Hct 28.8 L (30.3-42.9) % POC Glucose (70-105) mg/dL Crossmatch
[2020-11-10] MEDS: INSULIN REGULAR, HUMAN 100 UNITS/1 ML SUB-Q SCH ×2 (08:03→17:00)
[2020-11-10] MEDS: IBUPROFEN 800 MG TAB PO PRN ×3 (08:16→21:45)
[2020-11-10] MEDS: PRENATAL VIT27-FE FUMARATE-FOLIC ACID VIT TAB PO SCH (12:36)
[2020-11-10] MEDS: DOCUSATE SODIUM 100 MG CAP PO PRN ×2 (12:38→21:44)
[2020-11-10] MEDS: HYDROcodone/ACETAMINOPHEN 5-325 MG TAB PO PRN ×2 (12:38→20:00)
--- NOTE | 2020-11-10 20:20 | Post Anesthesia Evaluation ---
- Post Anesthesia Evaluation Patient Participated: Yes Airway Patent: Yes Stable Respiratory Function: Yes Nausea/Vomiting: No Temp > 96.8F: Yes Pain Manageable: Yes Adequeate Hydration: Yes Anesthesia Complications: No Block Receding Appropriately: Yes Patient on Ventilator: No
[2020-11-11] MEDS: HYDROcodone/ACETAMINOPHEN 5-325 MG TAB PO PRN ×3 (02:33→16:46)
[2020-11-11] MEDS: IBUPROFEN 800 MG TAB PO PRN ×2 (05:21→21:21)
[2020-11-11] MEDS: INSULIN REGULAR, HUMAN 100 UNITS/1 ML SUB-Q SCH ×4 (08:25→22:00)
--- NOTE | 2020-11-11 08:46 | Progress Note ---
Assessment and Plan - Patient Problems (1) Elevated blood pressure complicating in third trimester, antepartum Onset Date: ~11/05/20 Current Visit: Yes Status: Acute (2) Gestational diabetes mellitus (GDM) Onset Date: ~11/09/20 Current Visit: Yes Status: Acute Qualifiers: Gestational diabetes mellitus control: diet-controlled Trimester: third trimester Qualified Code(s): O24.410 - Gestational diabetes mellitus in , diet controlled (3) delivery delivered Onset Date: ~11/09/20 Current Visit: Yes Status: Acute Plan to address problem: continue course Subjective - Subjective Date of service: 11/11/20 (pt desires cdischarge home tomorrow) Principal diagnosis: Primary C/S PostOP Day 2 Interval history: Pt smiling and sitting up in bed eating breakfast without complaints. Denies MEJIA, vision changes, chest pain, and RUQ pain. Bottlefeeding infant without difficulty. Reports desire for discharge home tomorrow. Patient reports: appetite normal, voiding normally, pain well controlled, flatus, ambulating normally : doing well, bottle feeding Objective - Vital Signs Latest vital signs: Vital Signs Temp Pulse Resp BP BP Pulse Ox 11/11/20 00:55 98.1 F 74 18 119/75 98 11/10/20 21:43 75 142/88 11/10/20 21:23 98.3 F 103 H 18 142/88 95 11/10/20 16:15 98.0 F 96 H 18 139/89 99 11/10/20 12:15 97.6 F 96 H 18 130/80 99 11/10/20 09:25 97.9 F 87 20 126/87 100 11/10/20 08:50 86 95 11/10/20 08:48 93 H 90 11/10/20 08:45 91 H 98 Intake and Output 11/10/20 11/11/20 11/11/20 23:59 07:59 15:59 Intake Total 600 480 Balance 600 480 Intake: Intake, Free Water 600 480 Other: # Voids Void 2 1 - Exam Uterus: Present: normal, firm, fundal height at umbilicus Extremities: Present: edema (2+pitting pretibial BLE) Incision: Present: dry, intact - Labs Labs: Abnormal lab results 05/02/21 05/02/21 05/02/21 Range/Units 08:00 08:06 12:09 POC Glucose 107 H 137 H (70-105) mg/dL Magnesium 1.50 L (1.7-2.3) mg/dL 11/10/20 11/11/20 11/11/20 Range/Units 16:20 00:08 02:29 POC Glucose 118 H 177 H 142 H (70-105) mg/dL Magnesium (1.7-2.3) mg/dL
[2020-11-11] MEDS: PRENATAL VIT27-FE FUMARATE-FOLIC ACID VIT TAB PO SCH (09:25)
[2020-11-12] MEDS: IBUPROFEN 800 MG TAB PO PRN (06:34)
--- NOTE | 2020-11-12 07:10 | Discharge Summary ---
Providers - Providers Date of Admission: 11/05/20 17:21 Date of discharge: 11/12/20 (pt agrees with d/c) Attending physician: JAVIER BONNER Primary care physician: MEGHANA FLORES Hospitalization Reason for admission: IUP - , induction of labor, other (Elevated BP CHTN) Delivery: Procedure: primary low transverse (arrest of descent) Episiotomy: none Laceration: none Incision: normal, dry, intact Other procedures: none complications: transfusion (one unit PRC with good results; no s/sx of anemia) Condition at discharge: Good Disposition: DC-01 TO HOME OR SELFCARE - Discharge Diagnoses (1) delivery delivered Status: Acute Comment: RTO 1 week postop care Plan - Discharge Medications Prescriptions: Ferrous Sulfate [Feosol 325 MG tab] 325 mg PO BID #60 tablet labetaloL [Labetalol 200mg TAB] 200 mg PO BID #60 tablet Ibuprofen [Motrin] 800 mg PO TID PRN #30 tablet PRN Reason: Pain, Moderate (4-6) oxyCODONE /ACETAMINOPHEN [Percocet 5/325 mg] 1 - 2 tab PO Q6HR PRN #20 tablet PRN Reason: Pain - Provider Discharge Summary Activity: routine, no sex for 6 weeks, no heavy lifting 4 weeks, no strenuous exercise Diet: routine Instructions: routine Additional instructions: [] Smoking cessation referral if applicable(refer to patient education folder for contact #) [] Refer to [facility] Booklet Call your doctor immediately for: * Fever > 100.5 * Heavy vaginal bleeding ( >1 pad per hour) * Severe persistent headache * Shortness of breath * Reddened, hot, painful area to leg or breast * Drainage or odor from incision. * Keep incision clean and dry at all times and follow doctor's instructions regarding bathing/showering - Follow up plan Follow up: MEGHANA FLORES MD [Primary Care Provider] - 7 Days GUADALUPE MITCHELL CNM [Advanced Practice Nurse] - 7 Days (Congratulations! Mom, Dad, and Chey! Please call [phone] to schedule your postoperative visit in 1 week. Take medications as prescribed. Call with any headache not relieved with Tylenol, blurred vision, chest pain. Call with any concerns.)
[2020-11-12] MEDS: INSULIN REGULAR, HUMAN 100 UNITS/1 ML SUB-Q SCH (07:49)
[2020-11-12 09:08] VITALS: BP 122/80
[2020-11-12] MEDS: PRENATAL VIT27-FE FUMARATE-FOLIC ACID VIT TAB PO SCH (09:41)
== END 2020-11-12 14:30 | disposition home or self-care (01) | DRG 787 ==
LOC: TRG 17:20 → LD 17:21 → TRG 18:02 → OB 11-10 09:12
PROVIDERS: ADMIT Obstetrics & Gynecology; ATTEND Obstetrics & Gynecology
PROC: 10D00Z1 Extraction of Products of Conception, Low, Open Approach (ICD-10-PCS; principal; 2020-11-09)
PROC: 3E033VJ Introduction of Other Hormone into Peripheral Vein, Percutaneous Approach (ICD-10-PCS; 2020-11-09)
PROC: 30233N1 Transfusion of Nonautologous Red Blood Cells into Peripheral Vein, Percutaneous Approach (ICD-10-PCS; 2020-11-09)
DX: O32.4XX0 Maternal care for high head at term, not applicable or unspecified (principal); O99.354 Diseases of the nervous system complicating childbirth; D62 Acute posthemorrhagic anemia; O90.81 Anemia of the puerperium; I95.9 Hypotension, unspecified; O24.429 Gestational diabetes mellitus in childbirth, unspecified control; O13.5 Gestational [pregnancy-induced] hypertension without significant proteinuria, complicating the puerperium; O99.824 Streptococcus B carrier state complicating childbirth; O34.13 Maternal care for benign tumor of corpus uteri, third trimester; G83.24 Monoplegia of upper limb affecting left nondominant side; O24.410 Gestational diabetes mellitus in pregnancy, diet controlled; O09.519 Supervision of elderly primigravida, unspecified trimester; Z37.0 Single live birth; Z3A.35 35 weeks gestation of pregnancy; Z20.822 Contact with and (suspected) exposure to COVID-19
CPT/HCPCS: 36415; 59200; 71045; 82565; 82962; 83615; 83735; 84156; 84450; 84460; 84550; 85014; 85018; 85027; 86592; 86850; 86900; 86901; 86920; G0378; J0290; J0360; J0690; J0702; J1815; J1885; J2370; J2405; J2590; J2765; J3475; J3490; J7030; J7040; J7120; P9016; U0003